=== PATIENT | male | born 1940 | race Two or more races ===

== ENCOUNTER 2024-11-11 08:03 | Outpatient (REF) | payer SELFPAY ==
[2024-11-11 11:39] LABS: Hematocrit 40.9 % (42.0-52.0); Hemoglobin 13.5 g/dl (14.0-18.0); Mean Corpuscular Hemoglobin 30.3 pg (27.0-33.0); Mean Corpuscular Volume 91.9 fL (80.0-98.0); Mean Platelet Volume 11.2 fL (9.4-12.4); Platelet Count 164 X10*3/uL (160-400); Red Blood Count 4.45 X10*6/uL (4.60-5.80); White Blood Count 6.8 X10*3/uL (4.8-10.8)
[2024-11-11 11:55] LABS: Estimated Average Glucose 128 mg/dL; Hemoglobin A1C 148.4858 umol/L; Hemoglobin A1c % 6.1 % (<6.0); Total Hemoglobin (HGBA1C) 3399.9014 umol/L
[2024-11-11 12:13] LABS: Creatinine Urine 215.97 mg/dL; Microalbum/Creatinine Ratio Ur 9.2 ug/mg cr (<30)
[2024-11-11 12:23] LABS: Folate 15.6 ng/mL (> or = 4.0); Vitamin B12 669 pg/mL (200-900)
[2024-11-11 12:51] LABS: Hepatitis A Antibody IgG REACTIVE (Nonreactive); ~Hepatitis A Antibody IgG 11.87 S/CO (0.00-0.99)
[2024-11-11 12:59] LABS: HBS Num1 0.26 mIU/mL (0-7.99); HBc Num1 0.14 S/CO (0.00-0.79); HBsAGNum1 0.34 S/CO (0.00-0.99); HIV AB/AG Nonreactive (Nonreactive); HIV Num 1 0.11 S/CO (0.00-0.99); Hepatitis B Core Antibody Nonreactive (Nonreactive); Hepatitis B Surface Antigen Negative (Negative); ~HepC Num1 0.08 S/CO (0.00-0.79); ~Hepatitis B Surface Antibody NONREACTIVE (Nonreactive); ~Hepatitis C Antibody Nonreactive (Nonreactive)
[2024-11-11 13:10] LABS: Alanine Aminotransferase 21 U/L (0-40); Albumin Level 4.3 g/dL (3.5-5.0); Alkaline Phosphatase 33 U/L (39-117); Anion Gap 10 (12-20); Aspartate Amino Transferase 21 U/L (5-37); Bilirubin Direct 0.3 mg/dL (0.0-0.5); Bilirubin Total 0.9 mg/dL (0.0-1.0); Blood Urea Nitrogen 19 mg/dL (9-16); Calcium 9.2 mg/dL (8.4-10.2); Carbon Dioxide 27 mmol/L (22-29); Chloride 110 mmol/L (96-108); Cholesterol 150 mg/dL (<200); Estimated Glomerular Filt Rate > 60; Free T4 (Free Thyroxine) 1.24 ng/dL (0.71-1.85); Glucose Random 141 mg/dL (60-115); HDL Cholesterol 45 mg/dL (>40); LDL Cholesterol Calculated 90 mg/dL (<100); Potassium 3.9 mmol/L (3.3-5.1); Sodium 143 mmol/L (135-145); Triglycerides 76 mg/dL (<150); Vitamin D 25-OH Total 38.7 ng/mL (>30)
[2024-11-11 13:42] LABS: CT PCR NOT DETECTED (Not Detect.); NG PCR NOT DETECTED (Not Detect.)
[2024-11-14 07:59] LABS: RPR Rapid Plasma Reagin NON-REACTIVE (NON-REACTIVE)
== END 2024-11-11 08:04 | disposition home or self-care (01) ==
LOC: HO.HHCL 08:03
PROVIDERS: Visit Provider Family Medicine
DX: Z00.00 Encounter for general adult medical examination without abnormal findings (principal); E11.9 Type 2 diabetes mellitus without complications; I10 Essential (primary) hypertension; E78.49 Other hyperlipidemia; K21.9 Gastro-esophageal reflux disease without esophagitis; J30.9 Allergic rhinitis, unspecified; N40.0 Benign prostatic hyperplasia without lower urinary tract symptoms; Z87.891 Personal history of nicotine dependence; Z71.1 Person with feared health complaint in whom no diagnosis is made
CPT/HCPCS: 80048; 80061; 80076; 82043; 82306; 82570; 82607; 82746; 83036; 84439; 84443; 85027; 86592; 86704; 86706; 86708; 86803; 87340; 87389; 87491; 87591

== ENCOUNTER 2024-12-02 09:57 | Outpatient (REF) | payer OTHER, SELFPAY ==
--- NOTE | ~2024-12-02 | US_ITS ---
CLINICAL HISTORY: H O SMOKING US Abdomen (AAA) Comparison: None Findings: Aorta proximal 2.4 x 2.4 cm. Aorta mid 1.7 x 1.7 cm. Aorta distal 1.8 x 1.8 cm. Right common iliac artery 1.4 x 1.2 cm. Left common iliac artery 1.1 x 1.2 cm. IMPRESSION: 1. No abdominal aortic aneurysm. 2. 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 This document has been electronically signed by: Addy Gonzalez MD on 12/02/2024 12:11:50
--- OUTSIDE RECORDS SUMMARY | 2024-12-02 13:03 | XMS_ITS | Encounter Summary ---
Author Organization [employer] Address [address] [place] [address] Care Team Providers Care Estimator Project Manager Name Role Phone Payton Streeter DO Primary Care Provider [phone] Encounter Details Date Type Department Care Team (Latest Contact Info) Description 11/10/2024 Travel Social History Tobacco Use Types Packs/Day Years Used Date Smoking Tobacco: Never Smokeless Tobacco: Never Alcohol Use Standard Drinks/Week Comments Never 0 (1 standard drink = 0.6 oz pur e alcohol) Depression Answer Date Recorded Patient Health Questionnaire-9 Score 3 11/10/2024 Patient Health Questionnaire-9 Score 3 11/10/2024 Last PHQ-9: Questionnaire Data Not on file 0 11/10/2024 Housing Stability Answer Date Recorded What is your housing situation today? I have alexygregor carreno 11/10/[address] you li ve. Do you have problems with any of the following? None of the above 11/10/2024 Food Insecurity Answer Date Recorded Within the past 12 months, y ou worried that your food would run out before you got money to buy more: Never True 11/10/2024 Within the past 12 months,th e food you bought just didn't last and you didn't have enough money to get more: Never True 06/2025 Transportation Answer Date Recorded In the past 12 months, has l ack of transportation kept you from medical appts, meetings, work or from getting things needed for daily living? No 11/10/2024 Utilities Answer Date Recorded In the past 12 months, has t he electric, gas, oil or water company threatened to shut off services in your home? No 11/10/2024 Depression Answer Date Recorded Patient Health Questionnaire-2 Score 1 11/10/2024 Internet Access Answer Date Recorded Internet Access Q1 Yes 11/10/2024 Internet Access Q2 Not on file 11/10/2024 Sex and Gender Information Value Date Recorded Sex Assigned at Male 05/17/2024 1:47 PM EDT Legal Sex Male 1:46 PM EDT Gender Identity Male 05/17/2024 1:47 PM EDT Sexual Orientation Don't know 05/17/2024 1: 47 PM EDT documented as of this encounter Plan of Treatment Not on file documented as of this encounter Visit Diagnoses Not on filedocumented in this encounter Additional Health Concerns Assessment Noted Time PHQ-9 Depression Total Score: 3 11/10/19 10:22 AM EST documented as of this encounter Care Teams Estimator Project Manager Relationship Specialty Start Date End Date Payton Streeter DO [address] [place] [id number] PCP - General Family Medicine 11/10/24 documented as of this encounter
--- OUTSIDE RECORDS SUMMARY | 2024-12-02 13:03 | XMS_ITS | Clinical Summary ---
Author Organization [facility] Address [address] [place] [address] Care Team Providers Care Planning Aide Name Role Phone Tamika Hurley MD Primary Care Prov ider Allergies Active Allergy Reactions Criticality Noted Date Comments Iodinated Contrast Media 02/02/2018 Anxious, difficulty speaking Medications Medication Sig Dispensed Refills Start Date End Date Status amLODIPine (NORVASC) 5 mg tablet Take 1 tablet (5 mg total) by mouth 1 (one) time each day. 07/30/2024 Active aspirin (ASPIR-81 ORAL) Take 1 Tab by mouth daily (with breakfast). Active atorvastatin (LIPITOR) 10 mg tablet Take 1 tablet (10 mg total) by mouth at bedtime. 07/30/2024 Active blood-glucose meter (ONETOUCH VERIO METER [facility]) Blood Glucose Monitoring Suppl (ONETOUCH VERIO) W/DEVICE Kit- 1 Device by Does not apply route See Admin Instructions. Check blood sugar once a day. Dx E11.9 12/10/2018 Active cetirizine (ZyrTEC) 10 mg tablet Take 1 tablet (10 mg total) by mouth 1 (one) time each day. 07/30/2024 Active diclofenac (VOLTAREN) 1 % topical gel Apply 4 g topically 5 times daily. 06/23/2023 Active ceramides cream (CeraVe) cream moisturizing cream Apply twice a day to hands 11/23/2019 Active fenofibrate (LOFIBRA) 160 mg tablet Take 1 tablet (160 mg total) by mouth 1 (one) time each day. 07/30/2024 Active fluticasone propionate (FLONASE) 50 mcg/actuation nasal spray 1 [place] by Each Nare route daily. 07/21/2020 Active glipiZIDE (GLUCOTROL XL) 2.5 mg 24 hr tablet Take 1 tablet (2.5 mg total) by mouth 1 (one) time each day. 07/30/2024 Active blood sugar diagnostic (TeamieTouch Verio test strips) test strip Use to test blood sugar once a day. 04/13/2024 05/08/2025 Active ibuprofen (ADVIL,MOTRIN) 600 mg tablet Take 1 Tab by mouth 3 times daily as needed for Pain. 07/17/2020 Active lisinopriL (PRINIVIL,ZESTRIL) 2.5 mg tablet Take 1 tablet (2.5 mg total) by mouth 1 (one) time each day. 07/30/2024 Active metFORMIN XR (GLUCOPHAGE-XR) 500 mg 24 hr tablet Take 1 tablet (500 mg total) by mouth 1 (one) time each day with breakfast. 07/30/2024 Active mirabegron (Myrbetriq) 25 mg 24 hr tablet 10/15/2022 Active omeprazole (PriLOSEC) [address] capsule Take 1 capsule (20 mg total) by mouth 1 (one) time each day. 07/30/2024 Active [place]'s wort 300 mg capsule Take 1 capsule by mouth 1 (one) time each day. Active tamsulosin (FLOMAX) 0.4 mg 24 hr capsule TAKE 1 CAPSULE BY MOUTH DAILY. TAKE 30 MINS AFTER SAME MEAL EVERY DAY. 07/30/2024 Active terbinafine (LamISIL) 1 % cream Apply 1 Units topically at bedtime. 08/18/2018 Active lancets 33 gauge misc 1 Each by Does not apply route daily. Dx: E11.9 06/23/2023 Active Active Problems Problem Noted Date Diagnosed Date Hydrocele, bilateral 09/05/2019 Overview (10/07/2024): [facility] US 09/01/19 ZULEYMA (obstructive sleep apnea) 09/07/2018 Overview (10/07/2024): [facility] [place] Home Polysomnogram: Date 09/02/2018; AHI 43, Unclassified apneas 44; Obstructive apneas 285; Central apneas 12; Mixed apneas 1; hypopneas 26; oxygen saturation data not recorded. RBM Polysomnogram treatment study. Date 10/12/2018. SE 55 % SM 66 %; spent 28 % of the study in REM. On CPAP @ 16; RDI 5.1 (AHI 4.6), Central apneas 14; Obstructive apneas 0; Mixed apneas 0; hypopneas 3; RERAs 2; and, average oxygen saturation was 97%. For the entire study, PLMs ~6. - Obstructive Sleep Apnea - severe; mostly obstructive apneas; by 2018 home polysomnogram. - as of 10/19/2020 not using, too much air Choledocholithiasis with chronic cholecystitis 0 03/12/2018 Overview (10/07/2024): s/p lap cholecystectomy 10/02/2017 BPH (benign prostatic hyperplasia) 02/02/2018 Colon polyp 02/02/2018 Diabetes mellitus type 2, uncomplicated 02/03/20 18 Elevated PSA 02/02/2018 Overview (10/07/2024): PSA 4 in 2018 per uro note 12/2019; %free PSA 23 favoring benign etiol. He recommended d/cing PSA screening. Hyperlipidemia 02/02/2018 Hypertension 02/02/2018 Immunizations Name Administration Dates Next Due Influenza trivalent, 0.5mL ( Fluad) 65yo and older 10/17/2022,08/21/2021,07/17/2020,09/16 Influenza, Unspecified 11/10/2017 Pfizer Covid-19 Bivalent, Or iginal + Ba.1 (Non-US Trademark COMIRNATAcompli Bivalent) 10/08/2022 [employer] SARS-CoV-2 COVID-19, mRNA, LNP-S, preservative free 01/04/2021,12/14/2020 Pneumococcal conjugate 13 va lent (Prevnar 13, PCV13) 2mo and older 02/02/2018 Pneumococcal polysaccharide 23 valent (Pneumovax 23) 2yo and older 03/09/2019 Tdap Tetanus diptheria acell ular pertussis (Boostrix; Adacel) 7yo and older 02/02/2018 Surgical History Surgery Date Site/Laterality Comments CHOLECYSTECTOMY 10/02/2017 PROCEDURE: HISTORICAL CHOLECYSTECTOMY; COMMENT: lap jessica OTHER SURGICAL HISTORY 11/04/2019 Left PROCEDURE: [place] EXC HYDROCELE SPRMATIC CORD UNI SPX; COMMENT: ANDERSON De La Fuente Medical History Medical History Date Comments Hypertension 02/02/2018 DX:Hypertension Diabetes mellitus type 2, un complicated (CMS/HCC) 02/02/2018 DX:Diabetes mellitus type 2, uncomplicated (HCC) Hyperlipidemia 02/02/2018 DX:Hyperlipidemi a BPH (benign prostatic hyperplasia) 02/02/2018 DX:BPH (benign prostatic hyperplasia) Elevated PSA 02/02/2018 DX:Elevated PSA Colon polyp 02/02/2018 DX:Colon polyp Choledocholithiasis with chr onic cholecystitis 03/12/2018 DX:Choledocholithiasis with chronic cholecystitis; COMMENT: s/p lap cholecystectomy 10/02/2017 Family History Medical History Relation Name Comments Heart attack Brother Heart attack Father hyperlipidemia Coronary artery disease Mother hype rlipidemia, ? reaction to anesthesia Diabetes Sister 1 hypertension Hypertension Sister 2 Relation Name Status Comments Brother Father Mother Sister 1 Sister 2 Social History Tobacco Use Types Packs/Day Years Used Date Smoking Tobacco: Former Cigarettes Smokeless Tobacco: Never Alcohol Use Standard Drinks/Week Comments No 0 (1 standard drink = 0.6 oz pur e alcohol) Sex and Gender Information Value Date Recorded Sex Assigned at Not on file Gender Identity Not on file Sexual Orientation Not on file Obstetrics History Last Filed Vital Signs Vital Sign Reading Time Taken Comments Blood Pressure 114/59 04/13/2024 10:56 AM EDT Pulse 67 04/13/2024 10:56 AM EDT Temperature - - Respiratory Rate - - Oxygen Saturation - - Inhaled Oxygen Concentration - - Weight 63.1 kg (139 lb 3.2 oz) 04/13/2024 10:56 AM EDT Height 162.6 cm (5' 4 ) 04/13/2024 10:56 AM EDT Body Mass Index 23.89 04/13/2024 10:56 AM EDT Plan of Treatment Upcoming Encounters Date Type Department Care Team (Late st Contact Info) Description 12/28/2024 11:30 AM EST Office Visit Adult Medicine [address] [address] Tamika Hurley MD [address] [place] [address] [phone] Health Maintenance Due Date Last Done Comments Diabetes: Annual Retina Eye Exam 1950 Zoster Vaccines (1 of 2) 1991 RSV Immunization Patients 60+ Years Old (1 - 1-dose 75+ series) 2016 Depression Screening 10/12/2022 Falls Risk Assessment 10/12/2022 Social Influencers of Health Screening 10/12/2022 COVID-19 Vaccine ( season) 2024 09/12/2021, 01/04/2021, 12/14/2020 Influenza Vaccine (#1) 2024 , 08/21/2021, 07/17/2020, Additional history exists Diabetes: Blood Sugar Control Test (HGBA1C) 09/09/2024 03/09/2024, 03/09/2024 Diabetes: Annual Urine Albumin-Creatinine Ratio (uACR) 03/09/2025 03/09/2024 Diabetes: Annual GFR (Glomerular Filtration Rate) 03/09/2025 03/09/2024, 03/09/2024 Hypertension/CHF/CAD Annual BMP Blood Test 03/09/2025 03/09/2024, 03/09/2024 Diabetes: Annual Foot Exam 04/13/2025 04/13/2024 DTaP,Tdap,and Td Vaccines (2 - Td or Tdap) 02/03/2028 02/02/2018 Cholesterol Screening (Lipid Panel) 03/09/2029 03/09/2024, 03/09/2024 Pneumococcal Vaccine: 65+ Years Completed 03/09/2019, 02/02/2018 HIB Vaccines Aged Out No longer eligi ble based on patient's age to complete this topic HPV Vaccines Aged Out No longer eligi ble based on patient's age to complete this topic Hepatitis A Vaccines Aged Out No long er eligible based on patient's age to complete this topic Hepatitis B Vaccines Aged Out No long er eligible based on patient's age to complete this topic IPV Vaccines Aged Out No longer eligi ble based on patient's age to complete this topic MMR Vaccines Aged Out No longer eligi ble based on patient's age to complete this topic Meningococcal ACWY Vaccine Aged Out N o longer eligible based on patient's age to complete this topic RSV Immunization Patients Under 20 months Aged Out No longer eligible based on patient's age to complete this topic Varicella Vaccines Aged Out No longer eligible based on patient's age to complete this topic Procedures Procedure Name Priority Date/Time Associated Diagnosis Comments DIABETES FOOT EXAM Routine 04/13/2024 URINE ALBUMIN CREATININE RATIO Routine 03/09/2024 ANNUAL BMP BLOOD TEST Routine 03/09/2024 HEMOGLOBIN A1C Routine 03/09/2024 LIPID PANEL Routine 03/09/2024 from Last 3 Months or Most Recently Relevant to Health Maintenance Results * Diabetes Foot Exam (04/13/2024) Pathologist [facility] Diabetes: Annual Foot Exam abstracted Historical Provider [facility] * Urine Albumin Creatinine Ratio (03/09/2024) Pathologist [facility] Urine Albumin Creatinine Ratio abstracted Historical Provider [facility] * Annual BMP Blood Test (03/09/2024) Pathologist [facility] Annual BMP Blood Test abstracted Historical Provider [facility] * Hemoglobin A1c (03/09/2024) [facility] Hemoglobin A1C 5.8 6.5 % Blood Venous blood specimen / Unknown Historical Provider LAB BLOOD ORDERAB LES * (ABNORMAL) Lipid panel (03/09/2024) [facility] LDL/HDL Ratio 4 0 - 4 Triglycerides 174(A) 0 - 150 mg/dL Cholesterol 148 0 - 200 mg/dL HDL 39(A) 40 mg/dL LDL Cholesterol 75 0 - 100 mg/dL Blood Venous blood specimen / Unknown Historical Provider LAB BLOOD ORDERAB LES from Last 3 Months or Most Recently Relevant to Health Maintenance Care Teams Planning Aide Relationship Specialty Start Date End Date Tamika Hurley MD PCP - General Internal Medicine 07/22/22
--- OUTSIDE RECORDS SUMMARY | 2024-12-02 13:03 | XMS_ITS | Clinical Summary ---
Author Organization [employer] Address [address] [place] [address] Care Team Providers Care Molding Manager Name Role Phone Payton Streeter Primary Care Provider Allergies No known active allergies Medications tamsulosin (Flomax) 0.4 MG 24 hr capsule Take 0.4 mg by mouth Once per day. 11/05/2024 Active omeprazole (PriLOSEC) [address] capsule Take 20 mg by mouth before breakfast. 11/05/2024 Active Myrbetriq 25 MG 24 hr tablet Take 25 mg by mouth Once per day. 11/05/2024 Active metFORMIN XR (Glucophage-XR) 500 MG 24 hr tablet Take 500 mg by mouth with evening meal. 10/18/2024 Active lisinopril 2.5 MG tablet Take 2.5 mg by mouth Once per day. 11/05/2024 Active amLODIPine (Norvasc) 5 MG tablet Take 5 mg by mouth Once per day. 11/05/2024 Active atorvastatin (Lipitor) 10 MG tablet Take 10 mg by mouth Once per day. 11/05/2024 Active glipiZIDE XL (Glucotrol XL) 2.5 MG 24 hr tablet Take 2.5 mg by mouth Once per day. 11/05/2024 Active fenofibrate (Triglide) 160 MG tablet Take 160 mg by mouth Once per day. 11/05/2024 Active finasteride (Proscar) 5 MG tablet Take 5 mg by mouth Once per day. 11/05/2024 Active cetirizine (ZyrTEC) 10 MG tablet Take 10 mg by mouth Once per day. 11/05/2024 Active Active Problems Problem Noted Date Diagnosed Date BPH (benign prostatic hyperplasia) 11/10/2024 Chronic allergic rhinitis 11/10/2024 History of colonic polyps 11/10/2024 BMI 27.0-27.9,adult 11/10/2024 History of tobacco use 11/10/2024 History of CVA (cerebrovascular accident) 2024 Essential hypertension 11/09/2024 Hyperlipidemia 11/09/2024 Type 2 diabetes mellitus 11/09/2024 Chronic gastroesophageal reflux disease 11/09/19 Encounters Date Type Department Care Team Description 12/02/2024 Orders Only [facility] [address] [place] [phone] Payton Streeter DO 11/10/2024 10:15 AM EST Office Visit [facility] [address] [place] [address] Payton Streeter DO Type 2 diabetes mellitus without complication, without long-term current use of insulin ([facility]) (Primary Dx); Essential hypertension; Other hyperlipidemia; Chronic gastroesophageal reflux disease; Chronic allergic rhinitis; Benign prostatic hyperplasia, unspecified whether lower urinary tract symptoms present; History of tobacco use; Concern about memory; History of colonic polyps; Healthcare maintenance; BMI 27.0-27.9,adult; Encounter for immunization 11/10/2024 Travel 11/08/2024 Telephone [facility] [address] [place] [phone] Anni Welch MA Chart Prep from Last 3 Months Immunizations Name Administration Dates Next Due Pfizer Covid-19 Vaccine 12+ 11/10/2024 Family History Medical History Relation Name Comments Dementia Brother Heart disease Father Heart disease Mother Relation Name Status Comments Brother Father Mother Social History Tobacco Use Types Packs/Day Years Used Date Smoking Tobacco: Never Smokeless Tobacco: Never Tobacco Cessation:Counseling Given: Not Answered Alcohol Use Standard Drinks/Week Comments Never 0 (1 standard drink = 0.6 oz pur e alcohol) Depression Answer Date Recorded Patient Health Questionnaire-9 Score 3 11/10/2024 Patient Health Questionnaire-9 Score 3 11/10/2024 Last PHQ-9: Questionnaire Data Not on file 0 11/10/2024 Housing Stability Answer Date Recorded What is your housing situation today? I have alexy carreno 11/10/[address] you [...] the past 12 months, has t he [employer], gas, oil or water company threatened to [...] Don't know 05/17/2024 1: 47 PM EDT Last Filed Vital Signs Vital Sign Reading Time Taken Comments Blood Pressure 132/70 11/10/2024 10:18 AM EST Pulse 78 11/10/2024 10:18 AM EST Temperature 36.1 ??C (97 ??F) 11/10/2024 10:18 AM EST Respiratory Rate 19 11/10/2024 10:18 AM EST Oxygen Saturation - - Inhaled Oxygen Concentration - - Weight 64.9 kg (143 lb) 11/10/2024 10:18 AM EST Height 152.4 cm (5') 11/10/2024 10:18 AM EST Body Mass Index 27.93 11/10/2024 10:18 AM EST Plan of Treatment Health Maintenance Due Date Last Done Comments Diabetes: Foot Exam 1950 Eye Exam 1950 DTaP/Tdap/Td Vaccines (1 - Tdap) 1960 Pneumococcal Vaccine: 50+ Years (1 of 2 - PCV) 1960 Zoster Vaccines (1 of 2) 1991 RSV Patients and Patients Aged 60 years or older (1 - 1-dose 75+ series) 2016 Influenza Vaccine (#1) 2024 Diabetes: Hemoglobin A1C 05/11/2025 025, 11/10/2024 Alcohol/Substance Use Screening 11/10/2025 11/10/2024 Depression Screening 11/10/2025 11/10/2024, 11/10/2024 SDOH Screening 11/10/2025 11/10/2024 Tobacco Screening 11/10/2025 11/10/2024 Diabetes: Urine Protein Screening 11/11/2025 11/11/2024 Lipid Panel 11/11/2025 11/11/2024 COVID-19 Vaccine Completed 11/10/2024 HIB Vaccines Aged Out No longer eligi [...] patient's age to complete this topic Meningococcal Vaccine Aged Out No laurita angy eligible based on patient's age to complete this topic RSV under 20 months Aged Out No longe r eligible based on patient's age to complete this topic Rotavirus Vaccines Aged Out No longer eligible based on patient's age to complete this topic Procedures Procedure Name Priority Date/Time Associated Diagnosis Comments US AORTA Routine 12/02/2024 12:11 PM EST VITAMIN B12/FOLATE, SERUM PANEL Routine 11/11/2024 8:10 AM EST Type 2 diabetes mellitus without complication, without long-term current use of insulin (CMS/HCC) Essential hypertension Other hyperlipidemia Chronic gastroesophageal reflux disease Chronic allergic rhinitis Benign prostatic hyperplasia, unspecified whether lower urinary tract symptoms present History of tobacco use Concern about memory Healthcare maintenance BMI 27.0-27.9,adult HEPATITIS B CORE AB TOTAL Routine 11/11/2024 8:10 AM EST Type 2 diabetes mellitus without complication, without long-term current use of insulin (CMS/HCC) Essential hypertension Other hyperlipidemia Chronic gastroesophageal reflux disease Chronic allergic rhinitis Benign prostatic hyperplasia, unspecified whether lower urinary tract symptoms present History of tobacco use Concern about memory Healthcare maintenance BMI 27.0-27.9,adult HEPATITIS A ANTIBODY, TOTAL Routine 11/11/2024 8:10 AM EST Type 2 diabetes mellitus without complication, without long-term current use of insulin (CMS/HCC) Essential hypertension Other hyperlipidemia Chronic gastroesophageal reflux disease Chronic allergic rhinitis Benign prostatic hyperplasia, unspecified whether lower urinary tract symptoms present History of tobacco use Concern about memory Healthcare maintenance BMI 27.0-27.9,adult HEPATITIS B SURFACE ANTIBODY, QUALITATIVE Routine 11/11/2024 8:10 AM EST Type 2 diabetes mellitus without complication, without long-term current use of insulin (CMS/HCC) Essential hypertension Other hyperlipidemia Chronic gastroesophageal reflux disease Chronic allergic rhinitis Benign prostatic hyperplasia, unspecified whether lower urinary tract symptoms present History of tobacco use Concern about memory Healthcare maintenance BMI 27.0-27.9,adult RPR (MONITOR) W/REFL TITER Routine 11/11/2024 8:10 AM EST Type 2 diabetes mellitus without complication, without long-term current use of insulin (CMS/HCC) Essential hypertension Other hyperlipidemia Chronic gastroesophageal reflux disease Chronic allergic rhinitis Benign prostatic hyperplasia, unspecified whether lower urinary tract symptoms present History of tobacco use Concern about memory Healthcare maintenance BMI 27.0-27.9,adult HEPATITIS C AB W/REFL TO HCV RNA, QN, PCR Routine 11/11/2024 8:10 AM EST Type 2 diabetes mellitus without complication, without long-term current use of insulin (CMS/HCC) Essential hypertension Other hyperlipidemia Chronic gastroesophageal reflux disease Chronic allergic rhinitis Benign prostatic hyperplasia, unspecified whether lower urinary tract symptoms present History of tobacco use Concern about memory Healthcare maintenance BMI 27.0-27.9,adult HIV 1/2 ANTIGEN/ANTIBODY, FOURTH GENERATION W/RFL Routine 11/11/2024 8:10 AM EST Type 2 diabetes mellitus without complication, without long-term current use of insulin (CMS/HCC) Essential hypertension Other hyperlipidemia Chronic gastroesophageal reflux disease Chronic allergic rhinitis Benign prostatic hyperplasia, unspecified whether lower urinary tract symptoms present History of tobacco use Concern about memory Healthcare maintenance BMI 27.0-27.9,adult HEPATITIS B SURFACE ANTIGEN, EIA Routine 11/11/2024 8:10 AM EST Type 2 diabetes mellitus without complication, without long-term current use of insulin (CMS/HCC) Essential hypertension Other hyperlipidemia Chronic gastroesophageal reflux disease Chronic allergic rhinitis Benign prostatic hyperplasia, unspecified whether lower urinary tract symptoms present History of tobacco use Concern about memory Healthcare maintenance BMI 27.0-27.9,adult ALBUMIN, RANDOM URINE W/CREATININE Routine 11/11/2024 8:10 AM EST Type 2 diabetes mellitus without complication, without long-term current use of insulin (CMS/HCC) Essential hypertension Other hyperlipidemia Chronic gastroesophageal reflux disease Chronic allergic rhinitis Benign prostatic hyperplasia, unspecified whether lower urinary tract symptoms present History of tobacco use Concern about memory Healthcare maintenance BMI 27.0-27.9,adult CBC Routine 11/11/2024 8:10 AM EST Type 2 diabetes mellitus without complication, without long-term current use of insulin (CMS/HCC) Essential hypertension Other hyperlipidemia Chronic gastroesophageal reflux disease Chronic allergic rhinitis Benign prostatic hyperplasia, unspecified whether lower urinary tract symptoms present History of tobacco use Concern about memory Healthcare maintenance BMI 27.0-27.9,adult BASIC METABOLIC PANEL Routine 11/11/2024 8:10 AM EST Type 2 diabetes mellitus without complication, without long-term current use of insulin (CMS/HCC) Essential hypertension Other hyperlipidemia Chronic gastroesophageal reflux disease Chronic allergic rhinitis Benign prostatic hyperplasia, unspecified whether lower urinary tract symptoms present History of tobacco use Concern about memory Healthcare maintenance BMI 27.0-27.9,adult HEMOGLOBIN A1C Routine 11/11/2024 8:10 AM EST Type 2 diabetes mellitus without complication, without long-term current use of insulin (CMS/HCC) Essential hypertension Other hyperlipidemia Chronic gastroesophageal reflux disease Chronic allergic rhinitis Benign prostatic hyperplasia, unspecified whether lower urinary tract symptoms present History of tobacco use Concern about memory Healthcare maintenance BMI 27.0-27.9,adult HEPATIC FUNCTION PANEL Routine 11/11/2024 8:10 AM EST Type 2 diabetes mellitus without complication, without long-term current use of insulin (CMS/HCC) Essential hypertension Other hyperlipidemia Chronic gastroesophageal reflux disease Chronic allergic rhinitis Benign prostatic hyperplasia, unspecified whether lower urinary tract symptoms present History of tobacco use Concern about memory Healthcare maintenance BMI 27.0-27.9,adult TSH Routine 11/11/2024 8:10 AM EST Type 2 diabetes mellitus without complication, without long-term current use of insulin ([facility]) Essential hypertension Other hyperlipidemia Chronic gastroesophageal reflux disease Chronic allergic rhinitis Benign prostatic hyperplasia, unspecified whether lower urinary tract symptoms present History of tobacco use Concern about memory Healthcare maintenance BMI 27.0-27.9,adult LIPID PANEL, STANDARD Routine 11/11/2024 8:10 AM EST Type 2 diabetes mellitus without complication, without long-term current use of insulin ([facility]/HCC) Essential hypertension Other hyperlipidemia Chronic gastroesophageal reflux disease Chronic allergic rhinitis Benign prostatic hyperplasia, unspecified whether lower urinary tract symptoms present History of tobacco use Concern about memory Healthcare maintenance BMI 27.0-27.9,adult VITAMIN D,25-OH,TOTAL,IA Routine 11/11/2024 8:10 AM EST Type 2 diabetes mellitus without complication, without long-term current use of insulin ([facility]) Essential hypertension Other hyperlipidemia Chronic gastroesophageal reflux disease Chronic allergic rhinitis Benign prostatic hyperplasia, unspecified whether lower urinary tract symptoms present History of tobacco use Concern about memory Healthcare maintenance BMI 27.0-27.9,adult T4, FREE Routine 11/11/2024 8:10 AM EST Type 2 diabetes mellitus without complication, without long-term current use of insulin ([facility]) Essential hypertension Other hyperlipidemia Chronic gastroesophageal reflux disease Chronic allergic rhinitis Benign prostatic hyperplasia, unspecified whether lower urinary tract symptoms present History of tobacco use Concern about memory Healthcare maintenance BMI 27.0-27.9,adult CHLAMYDIA/N. GONORRHOEAE RNA, TMA, UROGENITAL Routine 11/11/2024 8:10 AM EST Type 2 diabetes mellitus without complication, without long-term current use of insulin ([facility]/HCC) Essential hypertension Other hyperlipidemia Chronic gastroesophageal reflux disease Chronic allergic rhinitis Benign prostatic hyperplasia, unspecified whether lower urinary tract symptoms present History of tobacco use Concern about memory Healthcare maintenance BMI 27.0-27.9,adult POCT GLYCATED HEMOGLOBIN, TOTAL Routine 11/10/2024 10:27 AM EST Healthcare maintenance POCT GLUCOSE Routine 11/10/2024 10:26 AM EST Healthcare maintenance from Last 3 Months Results * US aorta (12/02/2024 12:11 PM EST) Anatomical Region Laterality Modality Abdomen Ultrasound 12/02/2024 12:1 1 PM EST Narrative 12/02/2024 12:13 PM EST ? [facility] ?[address] ?[place] [address] ? Ultrasound Report ? Signed ? Patient: Colon Morin,Ace ?MR#: ?? [id number] ? : 1940 ?Acct:[id number] ? Age/Sex: 83 / M ?ADM Date: 12/02/24 ? Loc: HO.US ? Attending Dr: Payton Streeter DO ? Ordering Physician: Payton Streeter DO ?? Date of Service: 12/02/24 ?? Procedure(s): US aorta ?? Accession Number(s): [id number] ? cc: Payton Streeter DO; Karthik Blankenship ? CLINICAL HISTORY: H O SMOKING ? US Abdomen (AAA) ? Comparison: None ? Findings: ?? Aorta proximal 2.4 x 2.4 cm. ?? Aorta mid 1.7 x 1.7 cm. ?? Aorta distal 1.8 x 1.8 cm. ? Right common iliac artery 1.4 x 1.2 cm. ?? Left common iliac artery 1.1 x 1.2 cm. ? IMPRESSION: ?? 1. No abdominal aortic aneurysm. ? 2. 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 ? This document has been electronically signed by: Addy Gonzalez MD on ?? 12/02/2024 12:11:50 ? Dictated By: ?Addy Gonzalez MD ? Signed By: ?<Electronically signed by Addy Gonzalez MD in OV> ? 12/02/243 ? DD/ 1211 ? TD/TT: 12/02/241210 ? Retail Client Manager: ? Procedure Note Justice, Image - 12/02/[address] [address] Ultrasound Report Signed Patient: Angel Easley#: [id number] : 2Acct:[id number] Age/Sex: 83 / MADM Date: 12/02/24 Loc: HO.US Attending Dr: Payton Streeter DO Ordering Physician: Payton tSreeter DO Date of Service: 12/02/24 Procedure(s): US aorta Accession Number(s): [id number] cc: Payton Streeter DO; Karthik Blankenship CLINICAL HISTORY: H O SMOKING US Abdomen (AAA) Comparison: None Findings: Aorta proximal 2.4 x 2.4 cm. Aorta mid 1.7 x 1.7 cm. Aorta distal 1.8 x 1.8 cm. Right common iliac artery 1.4 x 1.2 cm. Left common iliac artery 1.1 x 1.2 cm. IMPRESSION: 1. No abdominal aortic aneurysm. 2. 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 This document has been electronically signed by: Addy Gonzalez MD on 12/02/2024 12:11:50 Dictated By: Addy Gonzalez MD Signed By: <Electronically signed by Addy Gonzalez MD in OV> 12/02/24 1213 DD/ 1211 TD/TT: 12/02/24 1211 Retail Client Manager: us Payton Streeter DO IMG US PROCEDURES Final Resu lt * Vitamin D, 25-Hydroxy, Total, Immunoassay (11/11/2024 8:10 AM EST) Vitamin D 25-OH Total 38.7 >30 ng/mL [facility] Comment:Health Based Referen ce Values*< 20 ng/mL Teqzwltsj39-17 ng/mL Insufficient> 30 ng/mL Sufficient*Chrissie FONSECA. N Engl J Med. 2007;357:266-280Care must be taken in interpreting Vitamin D results fromdifferent laboratories and methodologies. Published datademonstrated that results from patients undergoinghemodialysis may show a negative bias when tested withvarious automated 25-OH vitamin D assays when compared toLC-MS/MS.When testing samples from patients whose predominant form ofVitamin D is Vitamin D2, such as patients receiving VitaminD2 supplementation, results that are subtherapeutic shouldbe confirmed with another method such as LC-MS/MS. Blood Venous blood specimen / Unknown 11/11/2024 8:10 AM EST 11/11/2024 11:28 AM EST us Payton Streeter DO LAB BLOOD ORDERABLES Final R esult Performing Organization Address City/[facility]/ZIP Co de Phone Number [facility] [address] [place] [address] [phone] * Vitamin B12 (Cobalamin) and Folate Panel, Serum (11/11/2024 8:10 AM EST) Vitamin B12 669 200 - 900 pg/mL [facility] Comment:NORMAL 200-900 PG/ML INDETERMINATE 160-199 PG/ML DEFICIENT < 160 PG/ML Folate 15.6 > or = 4.0 ng/mL [facility] Comment:Reference Values:> o r = 4.0 ng/mL< 4.0 ng/mL suggests folate deficiency Methotrexate, aminopterin and folinic acid(leucovorin) are chemotherapeutic agents whose molecularstructures are similar to folate; therefore, the Architectfolate assay cannot be used for patients using these drugs. Blood Venous blood specimen / Unknown 11/11/2024 8:10 AM EST 11/11/2024 11:28 AM EST us Payton Streeter DO LAB BLOOD ORDERABLES Final R esult Performing Organization Address [facility] Co de Phone Number [facility] [address] [place] [phone] * Albumin, Random Urine W/Creatinine (11/11/2024 8:10 AM EST) Creatinine, Urine 215.97 mg/dL [facility] Microalbumin Urine 20.0 mg/L H [facility] Microalbum Creatinine Ratio Ur 9.2 <30 ug/mg cr [facility] Comment:Albumin/Creatinine R atio Reference Ranges: Normal: < 30 ug/mg creatinine Microalbuminuria: 30 - 300 ug/mg creatinineClinical Albuminuria: > 300 ug/mg creatinine Urine (Urine, Random) 11/11/2024 8:10 AM EST 11/11/2024 11:23 AM EST us Payton Streeter DO LAB URINE ORDERABLES Final R esult Performing Organization Address City/[facility] Co de Phone Number [facility] [address] [place] [phone] * Hepatitis C Antibody with Reflex to HCV, RNA, Quantitative, Real-Time PCR (11/11/2024 8:10 AM EST) Hepatitis C Antibody Nonreactive Nonreactive [facility] Comment:Antibodies to HCV no t detected; does not exclude early acuteHCV infection. Blood Venous blood specimen / Unknown 11/11/2024 8:10 AM EST 11/11/2024 11:28 AM EST Payton Streeter DO LAB BLOOD ORDERABLES Final R [facility] Performing Organization Address [facility] Co de Phone Number [facility] [address] [place] [phone] * Hepatitis A Antibody, Total (11/11/2024 8:10 AM EST) Hepatitis A Antibody IgG REACTIVE Nonreactive [facility] Comment:The presence of IgG anti-HAV implies past HAV infection(recent or distant) or vaccination against HAV. Blood Venous blood specimen / Unknown 11/11/2024 8:10 AM EST 11/11/2024 11:28 AM EST Payton Streeter DO LAB BLOOD ORDERABLES Final R esult [facility] [address] [place] [phone] * Chlamydia/N. Gonorrhoeae RNA, TMA, Urogenitial (11/11/2024 8:10 AM EST) CT PCR NOT DETECTED Not Detect. [facility] Comment:A not detected test result does not exclude the possibilityof infection because test results can be affected byimproper specimen collection, concurrent antibiotic therapy,or the number of organisms in the specimen which may bebelow the sensitivity of the test. As with many diagnostictests, results from the Xpert CT/NG assay should beinterpreted in conjunction with other laboratory andclinical data available to the clinician.Xpert CT/NG performance has not been evaluated in patientsless than 14 years of age. The assay should not be used forthe evaluationof suspected sexual abuse or for other medico-legalindications. Additional testing is recommended in anycircumstance when false positive or false negative resultscould lead to adverse medical, social or psychologicalconsequences. NG PCR NOT DETECTED Not Detect. [facility] Comment:A not detected test result does not exclude the possibilityof infection because test results can be affected byimproper specimen collection, concurrent antibiotic therapy,or the number of organisms in the specimen which may bebelow the sensitivity of the test. As with many diagnostictests, results from the Xpert CT/NG assay should beinterpreted in conjunction with other laboratory andclinical data available to the clinician.Xpert CT/NG performance has not been evaluated in patientsless than 14 years of age. The assay should not be used forthe evaluationof suspected sexual abuse or for other medico-legalindications. Additional testing is recommended in anycircumstance when false positive or false negative resultscould lead to adverse medical, social or psychologicalconsequences. Urine Urethral structure / Unknown 11/11/2024 8:10 AM EST 11/11/2024 11:23 AM EST Narrative [facility] - 11/11/2024 1:42 PM EST Urine us Payton Streeter DO LAB MICROBIOLOGY - GENERAL O RDERABLES Final Result Performing Organization Address [facility]/ZIP Co de Phone Number [facility] [address] [place] [phone] * Hepatitis B surface antigen, EIA (11/11/2024 8:10 AM EST) Hepatitis B Surface Ag Negative Negative [facility] Blood Venous blood specimen / Unknown 11/11/2024 8:10 AM EST 11/11/2024 11:28 AM EST Payton Escalonaalyssarossy LAB BLOOD ORDERABLES Final R esult Performing Organization Address [facility] Co de Phone Number [facility] [address] [place] [phone] * Hepatitis B Core Antibody, Total (11/11/2024 8:10 AM EST) Hepatitis B Core Antibody Nonreactive Nonreactive [facility] Blood Venous blood specimen / Unknown 11/11/2024 8:10 AM EST 11/11/2024 11:28 AM EST Payton Streeter DO LAB BLOOD ORDERABLES Final R esult Performing Organization Address [facility] Co de Phone Number [facility] [address] [place] [phone] * RPR (Monitor) with Reflex to??Titer (11/11/2024 8:10 AM EST) RPR (Monitor) w/Refl Titer NON-REACTI VE NON-REACT OMAR [facility] Comment:THIS TEST WAS PERFOR MED AT:[employer] [place] [phone] PETERSON MD Rapid Plasma Reagin Ab Titer TNP [facility] Blood Venous blood specimen / Unknown 11/11/2024 8:10 AM EST 11/11/2024 11:28 AM EST Payton Escalonarekha DO LAB BLOOD ORDERABLES Final R esult Performing Organization Address City/[facility] Co de Phone Number [facility] [address] [place] [phone] * HIV-1/2 Antigen and Antibodies, Fourth Generation, with Reflexes (11/11/2024 8:10 AM EST) HIV AB/AG Nonreactive Nonreactive [facility] Comment:HIV-1 p24 Ag and/or HIV-1/HIV-2 Ab not detected.A test result that is nonreactive does not exclude thepossibility of exposure to or infection with HIV-1 and/orHIV-2. Nonreactive results in this assay for individualswith prior exposure to HIV-1 and/or HIV-2 may be due toantigen and antibody levels that are below the limit ofdetection of this assay.The [place] [employer] HIV Ag/Ab Combo assay result andsupplemental assay results should be interpreted inconjunction with the patient's clinical presentation,history and other laboratory results. If the results areinconsistent with clinical evidence, additional testing issuggested to confirm the result. Blood Venous blood specimen / Unknown 11/11/2024 8:10 AM EST 11/11/2024 11:28 AM EST Payton Syl DO LAB BLOOD ORDERABLES Final R esult [facility] [address] [place] [phone] * Hepatitis B Surface Antibody, Qualitative (11/11/2024 8:10 AM EST) Pathologist [facility] ~Hepatitis B Surface Antibody NONREACTIVE Nonreactive [facility] Comment:Nonreactive: < 8.00 mIU/mL Blood Venous blood specimen / Unknown 11/11/2024 8:10 AM EST 11/11/2024 11:28 AM EST us Payton Streeter DO LAB BLOOD ORDERABLES Final R esult [facility] [address] [place] [phone] * (ABNORMAL) CBC (11/11/2024 8:10 AM EST) White Blood Count 6.8 4.8 - 10.8 X10*3/uL [facility] Red Blood Count 4.45(L) 4.60 - 5.80 X10*6/uL [facility] Hemoglobin 13.5(L) 14.0 - 18.0 g/dl [facility] Hematocrit 40.9(L) 42.0 - 52.0 % [facility] Mean Corpuscular Volume 91.9 80.0 - 98.0 fL [facility] Mean Corpuscular Hemoglobin 30.3 27.0 - 33.0 pg [facility] Mean Corpuscular HGB Conc 33.0 31.0 - 36.0 g/dl [facility] Red Cell Distribution Width 14.0 11.0 - 16.0 % [facility] Platelet Count 164 160 - 400 X10*3/uL [facility] Mean Platelet Volume 11.2 9.4 - 12.4 fL [facility] NRBC Pct Auto 0.0 0.0 - 0.2 /100WBC [facility] NRBC Abs Auto 0.000 0.0 - 0.012 X10*3/uL [facility] Blood Venous blood specimen / Unknown 11/11/2024 8:10 AM EST 11/11/2024 11:28 AM EST Payton Streeter DO LAB BLOOD ORDERABLES Final R esult [facility] [address] [place] [phone] * TSH (11/11/2024 8:10 AM EST) Thyroid Stimulating Hormone 1.40 0.32 - 4.0 uIU/mL [facility] Comment:TSH 3rd Generation ( [facility]) Blood Venous blood specimen / Unknown 11/11/2024 8:10 AM EST 11/11/2024 11:28 AM EST Payton Syl DO LAB BLOOD ORDERABLES Final R esult Performing Organization Address City/[facility]/ZIP Co de Phone Number [facility] [address] [place] [phone] * T4, Free (11/11/2024 8:10 AM EST) Free T4 (Free Thyroxine) 1.24 0.71 - 1.85 ng/dL [facility] Blood Venous blood specimen / Unknown 11/11/2024 8:10 AM EST 11/11/2024 11:28 AM EST Payton Syl DO LAB BLOOD ORDERABLES Final R esult Performing Organization Address City/[facility] Co de Phone Number [facility] [address] [place] [phone] * (ABNORMAL) Hemoglobin A1c (11/11/2024 8:10 AM EST) Hemoglobin A1c 6.1(H) <6.0 % [facility] Comment:Hemoglobin A1C Refer ence Range Adults: 4.8 - 6.0 % Non diabetic: < 6.0 % Goal: < 7.0 %Additional Action Suggested: > 8.0 %Note: Hemoglobin A1c results are invalid for patients with abnormal amounts of HbF. Blood transfusions may impact the HbA1c concentration in the patient sample. Estimated Average Glucose 128 mg/dL [facility] Comment:eAG = Estimated ave rage glucose which is %A1C expressed asaverage glucose, using the formula of the [id number] Glucose study (ADAG), Diabetes Care, Vol.31,#8,2007 Blood Venous blood specimen / Unknown 11/11/2024 8:10 AM EST 11/11/2024 11:28 AM EST Payton Streeter DO LAB BLOOD ORDERABLES Final R esult Performing Organization Address [facility] Co de Phone Number [facility] [address] [place] [phone] * (ABNORMAL) Hepatic Function Panel (11/11/2024 8:10 AM EST) Bilirubin, Total 0.9 0.0 - 1.0 mg/dL [facility] Bilirubin, Direct 0.3 0.0 - 0.5 mg/dL [facility] Aspartate Amino Transferase 21 5 - 37 U/L [facility] Alanine Aminotransferase 21 0 - 40 U/L [facility] Total Protein 7.0 6.5 - 8.0 g/dL [facility] Albumin Level 4.3 3.5 - 5.0 g/dL [facility] Alkaline Phosphatase 33(L) 39 - 117 U/L [facility] Blood Venous blood specimen / Unknown 11/11/2024 8:10 AM EST 11/11/2024 11:28 AM EST Payton Streeter DO LAB BLOOD ORDERABLES Final R esult Performing Organization Address [facility] Co de Phone Number [facility] [address] [place] [phone] * Lipid Panel, Standard (11/11/2024 8:10 AM EST) Triglycerides 76 <150 mg/dL [facility] Comment:Desirable Triglyceri de: less than 150 mg/dLBorderline High Triglyceride 150-199 mg/dLHigh Triglyceride: 200-499 mg/dLVery High Triglyceride: greater than or equal to 5OO mg/dL Cholesterol 150 <200 mg/dL [facility] Comment:Desirable Cholestero l: less than 200 mg/dLBorderline High Cholesterol: 200-239 mg/dLHigh Cholesterol: greater than 239 mg/dL LDL Cholesterol Calculated 90 <100 mg/dL [facility] Comment:Desirable LDL: less than 100 mg/dLNear Optimal/Above Optimal LDL: 110- 129 mg/dLBorderline High LDL: 130-159 mg/dLHigh LDL: 160-189 mg/dLVery High LDL: greater than or equal to 190 mg/dL HDL Cholesterol 45 >40 mg/dL [facility] Comment:Desirable HDL: great er than 40 mg/dL Note: This HDL assay may give artificially low results in patients with liver disease. Blood Venous blood specimen / Unknown 11/11/2024 8:10 AM EST 11/11/2024 11:28 AM EST us Payton Streeter DO LAB BLOOD ORDERABLES Final R esult [facility] [address] [place] [address], [place] [phone] * (ABNORMAL) Basic Metabolic Panel (11/11/2024 8:10 AM EST) Sodium 143 135 - 145 mmol/L [facility] Potassium 3.9 3.3 - 5.1 mmol/L [facility] Chloride 110(H) 96 - 108 mmol/L [facility] Carbon Dioxide 27 22 - 29 mmol/L [facility] Anion Gap 10(L) 12 - 20 [facility] Urea Nitrogen (BUN) 19(H) 9 - 16 mg/dL [facility] Creatinine, Serum 1.07 0.5 - 1.4 mg/dL [facility] Estimated Glomerular Filt Rate >60 [facility] Comment:Chronic Kidney Disea se: Estimated GFR < 60 mL/min/[id number] Kidney Disease: Estimated GFR < 15 mL/min/1.73m2 Glucose 141(H) 60 - 115 mg/dL [facility] Calcium 9.2 8.4 - 10.2 mg/dL [facility] Blood Venous blood specimen / Unknown 11/11/2024 8:10 AM EST 11/11/2024 11:28 AM EST Payton Streeter DO LAB BLOOD ORDERABLES Final R esult [facility] [address] [place] [phone] * (ABNORMAL) POCT HGB A1C (11/10/2024 10:27 AM EST) Hemoglobin A1C 6.4(A) 4.0 - 6.0 % QC Media Lot # [id number] Lot# Expiration Date , Blood 11/10/2024 10:2 7 AM EST Payton Syl DO POINT OF CARE TEST ENTER/KYLER T ORDERABLES Final Result * (ABNORMAL) POCT Glucose (11/10/2024 10:26 AM EST) Glucose Blood, POC 317(A) 60 - 200 mg/dL [employer] Lot # [id number] Lot# Expiration Date ,172,025 Blood Capillary blood specimen / Unknown 11/10/2024 10:26 AM EST Payton Syl DO POINT OF CARE TEST ENTER/KYLER T ORDERABLES Final Result from Last 3 Months Insurance [address] [place] [id number] [facility] [place] [phone] Care Teams Molding Manager Relationship Specialty Start Date End Date Payton Streeter DO [address] [place] [phone] PCP - General Family Medicine 11/10/24
--- OUTSIDE RECORDS SUMMARY | 2024-12-02 13:03 | XMS_ITS | Encounter Summary ---
Author Organization [employer] Address [address] [facility] [address] [place] [address] Care Team Providers Care Radiation Therapy Technician Name Role Phone Unavailable Primary Care Provider Unavailabl e Reason for Visit * Reason Onset Date Comments Chart Prep 11/08/2024 Encounter Details Date Type Department Care Team (Late st Contact Info) Description 11/08/2024 Telephone [facility] [address] [place] [phone] Anni Welch MA Chart Prep Social History Tobacco Use Types Packs/Day Years Used Date Smoking Tobacco: Never Assessed Sex and Gender Information Value Date Recorded Sex Assigned at Male 05/17/2024 1:47 PM EDT Legal Sex Male 1:46 PM EDT Gender Identity Male 05/17/2024 1:47 PM EDT Sexual Orientation Don't know 05/17/2024 1: 47 PM EDT documented as of this encounter Miscellaneous Notes * Telephone Encounter - Anni Welch MA - 11/08/2024 10:45 AM EST Chart Prep Labs: not applicable Images: not applicable Vaccines due: Covid Due, Tdap Due, Flu Due, RSV in Pharmacy Due, and Shingles in pharmacy Due Referrals: Not Applicable Screenings: Lipid Panel Overdue care gaps: Sbirt, SDOH, PHQ-9, and Oral Health documented in this encounter Plan of Treatment Not on file documented as of this encounter Visit Diagnoses Not on filedocumented in this encounter
--- OUTSIDE RECORDS SUMMARY | 2024-12-02 13:03 | XMS_ITS | Encounter Summary ---
Author Organization [employer] [facility] Address [address] [place] [address] 7 [place] [address] Care Team Providers Care Maintenance And Utilities Supervisor Name Role Phone Payton Streeter DO Primary Care Provider [phone] Reason for Referral * Consultation (Routine) - Canceled Specialty Diagnoses / Procedures Referred By Kathryn newell Referred To Contact Ophthalmology Diagnoses Type 2 diabetes mellitus without complication, without long-term current use of insulin ([facility]) Essential hypertension Payton Streeter DO [address], [place] Phone: tel: fax: Referral ID Status Reason Start Date Expiration Date Visits Requested Visits Authorized [id number] Canceled Specialty Services Required 11/10/2024 11/10/2025 1 1 * Consultation (Routine) - Canceled Specialty Diagnoses / Procedures Referred By Kathryn newell Referred To Contact Gastroenterology Diagnoses History of colonic polyps Payton Streeter DO [address], [place] Phone: tel: fax: Referral ID Status Reason Start Date Expiration Date Visits Requested Visits Authorized [id number] Canceled Specialty Services Required 11/10/2024 11/10/2025 1 1 * Consultation (Routine) - Canceled Specialty Diagnoses / Procedures Referred By Kathryn newell Referred To Contact Neurology Diagnoses Concern about memory Paytno Streeter DO [address], [place] Phone: tel: fax: Referral ID Status Reason Start Date Expiration Date Visits Requested Visits Authorized [id number] Canceled Specialty Services Required 11/10/2024 11/10/2025 1 1 * Imaging (Routine) - Authorized Specialty Diagnoses / Procedures Referred By Contac t Referred To Contact Radiology Diagnoses Concern about memory Procedures CT Head w/o Contrast Payton Streeter DO [address] [place] [address] Phone: tel: fax: [address] Phone: tel: fax: Referral ID Status Reason Start Date Expiration Date V isits Requested Visits Authorized [id number] Authorized 11/10/2024 11/10/2025 1 1 * Imaging (Routine) - Closed Specialty Diagnoses / Procedures Referred By Contac t Referred To Contact Cardiology Diagnoses History of tobacco use Procedures Vascular US abdominal aorta anuerysm AAA screening Payton Streeter DO [address] [place] [address] Phone: tel: fax: [address] Phone: tel: fax: Referral ID Status Reason Start Date Expiration Date V isits Requested Visits Authorized [id number] Closed Perform Procedure 11/10/2024 11/10/2025 1 1 Encounter Details Date Type Department Care Team (Latest Contact Info) Description 11/10/2024 10:15 AM EST Office Visit [facility] [address] [place] [address] Payton Streeter DO [address], [place] Type 2 diabetes mellitus without complication, without long-term current use of insulin ([facility]) (Primary Dx); Essential hypertension; Other hyperlipidemia; Chronic gastroesophageal reflux disease; Chronic allergic rhinitis; Benign prostatic hyperplasia, unspecified whether lower urinary tract symptoms present; History of tobacco use; Concern about memory; History of colonic polyps; Healthcare maintenance; BMI 27.0-27.9,adult; Encounter for immunization Social History Tobacco Use Types Packs/Day Years [...] the past 12 months, has t he [employer], gas, oil or water [employer] threatened to shut off services in your [...] PM EDT documented as of this encounter Last Filed Vital Signs Vital Sign Reading [...] Mass Index 27.93 11/10/2024 10:18 AM EST documented in this encounter Plan of Treatment Scheduled Orders Name Type Priority Associated Diagnoses Orde r Schedule CT Head w/o Contrast Imaging Routine Concern about memory Expected: 11/10/2024, Expires: 11/10/2025 Scheduled Referrals Name Type Priority Associated Diagnoses Order Schedule Referral to Neurology Outpatient Referral Routine Concern about memory Expected: 11/10/2024 (Approximate), Expires: 11/10/2025 Referral to Gastroenterology Outpatient Referral Routine History of colonic polyps Expected: 11/10/2024 (Approximate), Expires: 11/10/2025 Referral to Ophthalmology Outpatient Referral Routine Type 2 diabetes mellitus without complication, without long-term current use of insulin ([facility]/HCC) Essential hypertension Expected: 11/10/2024 (Approximate), Expires: 11/10/2025 documented as of this encounter Procedures Procedure Name Priority Date/Time Associated Diagnosis Comments VITAMIN D,25-OH,TOTAL,IA Routine 11/11/2024 8:10 AM EST Type 2 diabetes mellitus without complication, without long-term current use of insulin (CMS/HCC) Essential hypertension Other hyperlipidemia Chronic gastroesophageal reflux disease Chronic allergic rhinitis Benign prostatic hyperplasia, unspecified whether lower urinary tract symptoms present History of tobacco use Concern about memory Healthcare maintenance BMI 27.0-27.9,adult VITAMIN B12/FOLATE, SERUM PANEL Routine 11/11/2024 8:10 [...] complication, without long-term current use of insulin ([facility]/HCC) Essential hypertension Other hyperlipidemia Chronic gastroesophageal reflux [...] Routine 11/10/2024 10:26 AM EST Healthcare maintenance documented in this encounter Results * Vitamin B12 (Cobalamin) and Folate Panel, Serum (11/11/2024 8:10 AM EST) Vitamin B12 669 200 - 900 pg/mL [facility] Comment:NORMAL 200-900 PG/ML INDETERMINATE 160-199 PG/ML DEFICIENT < 160 PG/ML Folate 15.6 > or = 4.0 ng/mL [facility] Comment:Reference Values:> o r = [...] ORDERABLES Final R esult Performing Organization Address City/[facility]/ZIP Co de Phone Number [facility] [address] [place] [phone] * Hepatitis B Core Antibody, Total (11/11/2024 8:10 AM EST) Hepatitis B Core Antibody Nonreactive Nonreactive [facility] Blood Venous blood specimen / Unknown 11/11/2024 8:10 AM EST 11/11/2024 11:28 AM EST Payton Streeter DO LAB BLOOD ORDERABLES Final R esult Performing Organization Address City/[facility]/ZIP Co de Phone Number [facility] [address] [place] [phone] * Hepatitis A Antibody, Total (11/11/2024 8:10 AM EST) Hepatitis A Antibody IgG REACTIVE Nonreactive [facility] Comment:The presence of IgG anti-HAV implies past HAV infection(recent or distant) or vaccination against HAV. Blood Venous blood specimen / Unknown 11/11/2024 8:10 AM EST 11/11/2024 11:28 AM EST Payton Streeter DO LAB BLOOD ORDERABLES Final R esult Performing Organization Address City/[facility] Co de Phone Number [facility] [address] [place] [phone] * Hepatitis B Surface Antibody, Qualitative (11/11/2024 8:10 AM EST) ~Hepatitis B Surface Antibody NONREACTIVE Nonreactive [facility] Comment:Nonreactive: < 8.00 mIU/mL Blood Venous blood specimen / Unknown 11/11/2024 8:10 AM EST 11/11/2024 11:28 AM EST Payton Streeter DO LAB BLOOD ORDERABLES Final R esult Performing Organization Address [facility] Co de Phone Number [facility] [address] [place] [phone] * RPR (Monitor) with Reflex to??Titer (11/11/2024 8:10 AM EST) RPR (Monitor) w/Refl Titer NON-REACTI VE NON-REACT OMAR [facility] Comment:THIS TEST WAS PERFOR MED AT:[facility] [place] [phone] PETERSON MD Rapid Plasma Reagin Ab Titer TNP [facility] Blood Venous blood specimen / Unknown 11/11/2024 8:10 AM EST 11/11/2024 11:28 AM EST Payton Haleyak LAB BLOOD ORDERABLES Final R esult Performing Organization Address [facility]/ZIP Co de Phone Number [facility] [address] [place] [phone] * Hepatitis C Antibody with Reflex to HCV, RNA, Quantitative, Real-Time PCR (11/11/2024 8:10 AM EST) Hepatitis C Antibody Nonreactive Nonreactive [facility] Comment:Antibodies to HCV no t detected; does not exclude early acuteHCV infection. Blood Venous blood specimen / Unknown 11/11/2024 8:10 AM EST 11/11/2024 11:28 AM EST Payton Streeter LAB BLOOD ORDERABLES Final R esult Performing Organization Address [facility] Co de Phone Number [facility] [address] [place] [phone] * HIV-1/2 Antigen and Antibodies, Fourth Generation, with Reflexes (11/11/2024 8:10 AM EST) HIV AB/AG Nonreactive Nonreactive [facility] Comment:HIV-1 p24 Ag and/or HIV-1/HIV-2 Ab not detected.A test result that is nonreactive does not exclude thepossibility of exposure to or infection with HIV-1 and/orHIV-2. Nonreactive results in this assay for individualswith prior exposure to HIV-1 and/or HIV-2 may be due toantigen and antibody levels that are below the limit ofdetection of this assay.[facility] HIV Ag/Ab Combo assay result andsupplemental assay results should be interpreted inconjunction with the patient's clinical presentation,history and other laboratory results. If the results areinconsistent with clinical evidence, additional testing issuggested to confirm the result. Blood Venous blood specimen / Unknown 11/11/2024 8:10 AM EST 11/11/2024 11:28 AM EST Result [facility] Payton Streeter DO LAB BLOOD ORDERABLES Final R esult [facility] [address] [place] [phone] * Chlamydia/N. Gonorrhoeae RNA, TMA, Urogenitial (11/11/2024 8:10 AM EST) CT PCR NOT DETECTED Not Detect. [facility] Comment:A not detected test result [...] psychologicalconsequences. NG PCR NOT DETECTED Not Detect. [facility] Comment:A not detected test result [...] AM EST 11/11/2024 11:23 AM EST Narrative [facility] - 11/11/2024 1:42 PM EST Urine Payton Streeter DO LAB MICROBIOLOGY - GENERAL O RDERABLES Final Result Performing Organization Address City/[facility]/ZIP Co de Phone Number [facility] [address] [place] [phone] * Hepatitis B surface antigen, EIA (11/11/2024 8:10 AM EST) Hepatitis B Surface Ag Negative Negative [facility] Blood Venous blood specimen / Unknown 11/11/2024 8:10 AM EST 11/11/2024 11:28 AM EST us Payton Streeter DO LAB BLOOD ORDERABLES Final R esult Performing Organization Address [facility] de Phone Number [facility] [address] [place] [phone] * Albumin, Random Urine W/Creatinine (11/11/2024 8:10 AM EST) Creatinine, Urine 215.97 mg/dL [facility] Microalbumin Urine 20.0 mg/L [facility] Microalbum Creatinine Ratio Ur 9.2 <30 ug/mg cr [facility] Comment:Albumin/Creatinine R atio Reference Ranges: Normal: < 30 ug/mg creatinine Microalbuminuria: 30 - 300 ug/mg creatinineClinical Albuminuria: > 300 ug/mg creatinine Urine (Urine, Random) 11/11/2024 8:10 AM EST 11/11/2024 11:23 AM EST Payton Streeter DO LAB URINE ORDERABLES Final R esult Performing Organization Address [facility] Co de Phone Number [facility] [address] [place] [phone] * (ABNORMAL) CBC (11/11/2024 8:10 AM EST) White Blood Count 6.8 4.8 - 10.8 X10*3/uL [facility] Red Blood Count 4.45(L) 4.60 - 5.80 X10*6/uL [facility] Hemoglobin 13.5(L) 14.0 - 18.0 g/dl [facility] Hematocrit 40.9(L) 42.0 - 52.0 % [facility] Mean Corpuscular Volume 91.9 80.0 - 98.0 fL [facility] Mean Corpuscular Hemoglobin 30.3 27.0 - 33.0 pg [facility] Mean Corpuscular HGB Conc 33.0 31.0 - 36.0 g/dl [facility] Red Cell Distribution Width 14.0 11.0 - 16.0 % [facility] Platelet Count 164 160 - 400 X10*3/uL [facility] Mean Platelet Volume 11.2 9.4 - 12.4 fL [facility] NRBC Pct Auto 0.0 0.0 - 0.2 /100WBC [facility] NRBC Abs Auto 0.000 0.0 - 0.012 X10*3/uL [facility] Blood Venous blood specimen / Unknown 11/11/2024 8:10 AM EST 11/11/2024 11:28 AM EST us Payton Streeter DO LAB BLOOD ORDERABLES Final R esult [facility] [address] [place] [phone] * (ABNORMAL) Basic Metabolic Panel (11/11/2024 8:10 AM EST) Sodium 143 135 - 145 mmol/L [facility] Potassium 3.9 3.3 - 5.1 mmol/L [facility] Chloride 110(H) 96 - 108 mmol/L [facility] Carbon Dioxide 27 22 - 29 mmol/L [facility] Anion Gap 10(L) 12 - 20 [facility] Urea Nitrogen (BUN) 19(H) 9 - 16 mg/dL [facility] Creatinine, Serum 1.07 0.5 - 1.4 mg/dL [facility] Estimated Glomerular Filt Rate >60 [facility] Comment:Chronic Kidney Disea se: Estimated GFR < 60 mL/min/[id number] Kidney Disease: Estimated GFR < 15 mL/min/1.73m2 Glucose 141(H) 60 - 115 mg/dL [facility] Calcium 9.2 8.4 - 10.2 mg/dL [facility] Blood Venous blood specimen / Unknown 11/11/2024 8:10 AM EST 11/11/2024 11:28 AM EST us Payton Streeter DO LAB BLOOD ORDERABLES Final R esult Performing Organization Address [facility]/ZIP Co de Phone Number [facility] [address] [place] [address] [phone] * (ABNORMAL) Hemoglobin A1c (11/11/2024 8:10 AM EST) Hemoglobin A1c 6.1(H) <6.0 % [facility] Comment:Hemoglobin A1C Refer ence Range Adults: 4.8 - 6.0 % Non diabetic: < 6.0 % Goal: < 7.0 %Additional Action Suggested: > 8.0 %Note: Hemoglobin A1c results are invalid for patients with abnormal amounts of HbF. Blood transfusions may impact the HbA1c concentration in the patient sample. Estimated Average Glucose 128 mg/dL [facility] Comment:eAG = Estimated ave rage glucose which is %A1C expressed asaverage glucose, using the formula of the C4F-UrniingZvrzorz Glucose study (ADAG), Diabetes Care, Vol.31,#8,2007 Blood Venous blood specimen / Unknown 11/11/2024 8:10 AM EST 11/11/2024 11:28 AM EST us Payton Streeter DO LAB BLOOD ORDERABLES Final R esult Performing Organization Address City/[facility]/ZIP Co de Phone Number [facility] [address] [place] [address] [phone] * (ABNORMAL) Hepatic Function Panel (11/11/2024 8:10 AM EST) Bilirubin, Total 0.9 0.0 - 1.0 mg/dL [facility] Bilirubin, Direct 0.3 0.0 - 0.5 mg/dL [facility] Aspartate Amino Transferase 21 5 - 37 U/L [facility] Alanine Aminotransferase 21 0 - 40 U/L [facility] Total Protein 7.0 6.5 - 8.0 g/dL [facility] Albumin Level 4.3 3.5 - 5.0 g/dL [facility] Alkaline Phosphatase 33(L) 39 - 117 U/L [facility] Blood Venous blood specimen / Unknown 11/11/2024 8:10 AM EST 11/11/2024 11:28 AM EST Payton Streeter LAB BLOOD ORDERABLES Final R esult Performing Organization Address City/[facility]/ZIP Co de Phone Number [facility] [address] [place] [address] [phone] * TSH (11/11/2024 8:10 AM EST) Thyroid Stimulating Hormone 1.40 0.32 - 4.0 uIU/mL [facility] Comment:TSH 3rd Generation ( Hybrent) Blood Venous blood specimen / Unknown 11/11/2024 8:10 AM EST 11/11/2024 11:28 AM EST [employer] LAB BLOOD ORDERABLES Final R esult Performing Organization Address City/[facility]/ZIP Co de Phone Number [facility] [address] [place] [address] [phone] * Lipid Panel, Standard (11/11/2024 8:10 AM EST) Triglycerides 76 <150 mg/dL [facility] Comment:Desirable Triglyceri de: less than 150 mg/dLBorderline High Triglyceride 150-199 mg/dLHigh Triglyceride: 200-499 mg/dLVery High Triglyceride: greater than or equal to 5OO mg/dL Cholesterol 150 <200 mg/dL [facility] Comment:Desirable Cholestero l: less than 200 mg/dLBorderline High Cholesterol: 200-239 mg/dLHigh Cholesterol: greater than 239 mg/dL LDL Cholesterol Calculated 90 <100 mg/dL [facility] Comment:Desirable LDL: less than 100 mg/dLNear Optimal/Above Optimal LDL: 110- 129 mg/dLBorderline High LDL: 130-159 mg/dLHigh LDL: 160-189 mg/dLVery High LDL: greater than or equal to 190 mg/dL HDL Cholesterol 45 >40 mg/dL [facility] Comment:Desirable HDL: great er than 40 mg/dL Note: This HDL assay may give artificially low results in patients with liver disease. Blood Venous blood specimen / Unknown 11/11/2024 8:10 AM EST 11/11/2024 11:28 AM EST us Payton Streeter DO LAB BLOOD ORDERABLES Final R esult [facility] [address] [place] [phone] * Vitamin D, 25-Hydroxy, Total, Immunoassay (11/11/2024 8:10 AM EST) Vitamin D 25-OH Total 38.7 >30 ng/mL [facility] Comment:Health Based Referen ce Values*< 20 ng/mL [id number] ng/mL Insufficient> 30 ng/mL Sufficient*Chrissie FONSECA. N [...] AM EST 11/11/2024 11:28 AM EST Payton Haleyrossy DO LAB BLOOD ORDERABLES Final R esult Performing Organization Address City/[facility] Co de Phone Number [facility] [address] [place] [address] [phone] * T4, Free (11/11/2024 8:10 AM EST) Pathologist [facility] Free T4 (Free Thyroxine) 1.24 0.71 - 1.85 ng/dL [facility] Blood Venous blood specimen / Unknown 11/11/2024 8:10 AM EST 11/11/2024 11:28 AM EST Payton Syl MUSTAFA LAB BLOOD ORDERABLES Final R esult Performing Organization Address City/[facility] Co de Phone Number [facility] [address] [place] [address] [phone] * (ABNORMAL) POCT HGB A1C (11/10/2024 10:27 AM EST) [facility] Hemoglobin A1C 6.4(A) 4.0 - 6.0 % QC Media Lot # [id number] Lot# Expiration Date Blood 11/10/2024 10:2 7 AM EST Payton Haleyrossy MUSTAFA POINT OF CARE TEST ENTER/KYLER T ORDERABLES Final Result * (ABNORMAL) POCT Glucose (11/10/2024 10:26 AM EST) Pathologist [facility] Glucose Blood, POC 317(A) 60 - 200 mg/dL [employer] Lot # [id number] Lot# Expiration Date 172,025 Blood Capillary blood specimen / Unknown 11/10/2024 10:26 AM EST Payton Streeter DO POINT OF CARE TEST ENTER/KYLER T ORDERABLES Final Result documented in this encounter Visit Diagnoses Diagnosis Type 2 diabetes mellitus without complication, without long-term current use of insulin ([facility])- Primary Essential hypertension Unspecified essential hypertension Other hyperlipidemia Chronic gastroesophageal reflux disease Chronic allergic rhinitis Benign prostatic hyperplasia, unspecified whether lower urinary tract symptoms present History of tobacco use Personal history of tobacco use, presenting hazards to health Concern about memory History of colonic polyps Personal history of colonic polyps Healthcare maintenance BMI 27.0-27.9,adult Encounter for immunization documented in this encounter Additional Health Concerns Assessment Noted Time PHQ-9 Depression Total Score: 3 11/10/19 10:22 AM EST documented as of this encounter Care Teams Maintenance And Utilities Supervisor Relationship Specialty Start Date End Date Payton Streeter DO [address] [place] [phone] PCP - General Family Medicine 11/10/24 documented as of this encounter
== END 2024-12-02 09:58 | disposition home or self-care (01) ==
LOC: HO.US 09:57
PROVIDERS: PCP Physician Assistant Medical; Visit Provider Family Medicine
DX: Z13.6 Encounter for screening for cardiovascular disorders (principal); Z87.891 Personal history of nicotine dependence
CPT/HCPCS: 76775

== ENCOUNTER → 2024-12-02 10:02 | Outpatient (BNV) | payer OTHER, SELFPAY | PROVIDERS: PCP Physician Assistant Medical; Visit Provider Radiology Vascular & Interventional Radiology | DX: I77.811 Abdominal aortic ectasia (principal) | CPT/HCPCS: 76775 ==

== ENCOUNTER 2024-12-23 09:45 | Outpatient (REF) | payer OTHER, SELFPAY ==
--- NOTE | ~2024-12-23 | CT_ITS ---
CLINICAL HISTORY: FORGETFULLNESS CT head without contrast Comparison: None Findings: No intra-axial mass, midline shift, hydrocephalus, or acute hemorrhage. No significant atrophy-like change or white matter disease. Posterior fossa structures intact. Pituitary, parasellar, hypothalamic and pineal regions are unremarkable. Lobulated lucency along the inner table of the anterior left parietal bone compatible with a prominent arachnoid granulation. Otherwise skull intact. Hypoplastic mastoids. Mild mucoperiosteal thickening of the left maxillary and bilateral ethmoids. No sinus opacification. Bilateral cataract surgery. Otherwise globes, optic nerves, extraocular muscles and retrobulbar fat are unremarkable. IMPRESSION: Normal noncontrast head CT Mild chronic paranasal sinus changes as noted. This document has been electronically signed by: Kingsley Mckeon MD on 12/23/2024 12:19:52
--- OUTSIDE RECORDS SUMMARY | 2024-12-23 10:33 | XMS_ITS | Clinical Summary ---
Author Organization [employer] Address [address] [facility] 7t [place] [address] Care Team Providers Care Curve Cleaner Name Role Phone Payton Streeter Primary Care [...] Department Care Team Description 12/02/2024 Orders Only [facility] [address] [place] [phone] Payton Streeter DO 11/10/2024 10:15 AM EST Office Visit [address] [address] Payton Streeter DO Type 2 diabetes mellitus without complication, without long-term current use of insulin ([facility]) (Primary Dx); Essential hypertension; Other hyperlipidemia; Chronic gastroesophageal reflux disease; Chronic allergic rhinitis; Benign prostatic hyperplasia, unspecified whether lower urinary tract symptoms present; History of tobacco use; Concern about memory; History of colonic polyps; Healthcare maintenance; BMI 27.0-27.9,adult; Encounter for immunization 11/10/2024 Travel 11/08/2024 Telephone [facility] [address] [place] [address] Anni Welch MA Chart Prep from Last 3 Months Immunizations Name Administration Dates Next Due Influenza, IIV3, injectable 10/17/2022,1 ,07/17/2020,09/06/2019, Pfizer Covid-19 Vaccine 12+ 11/10/2024,1 12/09/2021,09/12/2021,01/04/2021, Pneumococcal Conjugate PCV 13 03/09/2019, 018 Tdap 02/02/2018 Family History Medical History Relation Name Comments [...] Diabetes: Foot Exam 1951 Eye Exam 1951 Zoster Vaccines (1 of 2) 1991 RSV Patients and Patients Aged 60 years or older (1 - 1-dose 75+ series) 2016 Pneumococcal Vaccine: 50+ Years (2 of 2 - PPSV23) 05/04/2019 03/09/2019, 02/02/2018 Influenza Vaccine (#1) 2024 , 08/21/2021, 07/17/2020, Additional history exists Diabetes: Hemoglobin A1C 05/11/2025 11/11/2024, 06/2025 Alcohol/Substance Use Screening 11/10/2025 11/10/2024 Depression Screening 11/10/2025 11/10/2024, 11/10/19 SDOH Screening 11/10/2025 11/10/2024 Tobacco Screening 11/10/2025 11/10/2024 Diabetes: Urine Protein Screening 11/11/2025 11/11/2024 Lipid Panel 11/11/2025 11/11/2024 DTaP/Tdap/Td Vaccines (2 - Td or Tdap) 02/03/2028 02/02/2018 COVID-19 Vaccine Completed 11/10/2024, 04/2022, 09/12/2021, Additional history exists HIB Vaccines Aged Out No longer eligi [...] complication, without long-term current use of insulin ([facility]/HCC) Essential hypertension Other hyperlipidemia Chronic gastroesophageal reflux [...] complication, without long-term current use of insulin ([facility]) Essential hypertension Other hyperlipidemia Chronic gastroesophageal reflux disease Chronic allergic rhinitis Benign prostatic hyperplasia, unspecified whether lower urinary tract symptoms present History of tobacco use Concern about memory Healthcare maintenance BMI 27.0-27.9,adult LIPID PANEL, STANDARD Routine 11/11/2024 8:10 AM EST Type 2 diabetes mellitus without complication, without long-term current use of insulin ([facility]/HCC) Essential hypertension Other hyperlipidemia Chronic gastroesophageal reflux disease Chronic allergic rhinitis Benign prostatic hyperplasia, unspecified whether lower urinary tract symptoms present History of tobacco use Concern about memory Healthcare maintenance BMI 27.0-27.9,adult VITAMIN D,25-OH,TOTAL,IA Routine 11/11/2024 8:10 AM EST Type 2 diabetes mellitus without complication, without long-term current use of insulin ([facility]/HCC) Essential hypertension Other hyperlipidemia Chronic gastroesophageal reflux [...] complication, without long-term current use of insulin ([facility]) Essential hypertension Other hyperlipidemia Chronic gastroesophageal reflux [...] EST Narrative 12/02/2024 12:13 PM EST ? [facility] ?[address] ?[place] [address] ? Ultrasound Report ? Signed ? Patient: Colon Morin,Ace ?MR#: ?? [id number] ? : 1940 ?Acct:[id number] ? Age/Sex: 83 / M ?ADM Date: 12/02/24 ? Loc: HO.US ? Attending Dr: Payton Streeter DO ? Ordering Physician: Payton Streeter DO ?? Date of Service: 12/02/24 ?? Procedure(s): US aorta ?? Accession Number(s): [id number] ? cc: Payton Streeter DO; Karthik Blankenship [...] by Addy Gonzalez MD in OV> ? 12/02/24 1213 ? DD/ 1211 ? TD/TT: 12/02/24 1211 ? Drapery Operator: ? Procedure Note Donamrgauxter, Image - 12/02/2024 [place] [address] Ultrasound Report Signed Patient: Angel Easley#: [id number] : 2Acct:[id number] Age/Sex: 83 / MADM Date: 12/02/24 Loc: HO.US Attending Dr: Payton Streeter DO Ordering Physician: Payton Streeter DO Date of Service: 12/02/24 Procedure(s): US aorta Accession Number(s): [id number] cc: Payton Streeter DO; Karthik Blankenship CLINICAL [...] 12/02/24 1213 DD/ 1211 TD/TT: 12/02/24 1211 Drapery Operator: us Payton Streeter DO IMG US PROCEDURES Final Resu lt * Vitamin D, 25-Hydroxy, Total, Immunoassay (11/11/2024 8:10 AM EST) Vitamin D 25-OH Total 38.7 >30 ng/mL [facility] Comment:Health Based Referen ce Values*< 20 ng/mL [id number] ng/mL Insufficient> 30 ng/mL Sufficient*Chrissie FONESCA. N Engl J Med. 2007;357:266-280Care must be [...] DO LAB BLOOD ORDERABLES Final R esult [facility] [address] [place] [phone] * Vitamin B12 (Cobalamin) and Folate Panel, Serum (11/11/2024 8:10 AM EST) Vitamin B12 669 200 - 900 pg/mL [facility] Comment:NORMAL 200-900 PG/ML INDETERMINATE 160-199 PG/ML DEFICIENT < 160 PG/ML Folate 15.6 > or = 4.0 ng/mL [facility] Comment:Reference Values:> o r = 4.0 [...] ORDERABLES Final R esult Performing Organization Address City/[facility]/ZIP Co de Phone Number [facility] [address] [place] [phone] * Albumin, Random Urine W/Creatinine (11/11/2024 8:10 AM EST) Creatinine, Urine 215.97 mg/dL [facility] Microalbumin Urine 20.0 mg/L [facility] Microalbum Creatinine Ratio Ur 9.2 <30 ug/mg cr [facility] Comment:Albumin/Creatinine R atio Reference Ranges: Normal: < 30 ug/mg creatinine Microalbuminuria: 30 - 300 ug/mg creatinineClinical Albuminuria: > 300 ug/mg creatinine Urine (Urine, Random) 11/11/2024 8:10 AM EST 11/11/2024 11:23 AM EST Payton Streeter DO LAB URINE ORDERABLES Final R esult Performing Organization Address [facility] Co de Phone Number [facility] [address] [place] [phone] * Hepatitis C Antibody with Reflex to HCV, RNA, Quantitative, Real-Time PCR (11/11/2024 8:10 AM EST) Hepatitis C Antibody Nonreactive Nonreactive [facility] Comment:Antibodies to HCV no t detected; does not exclude early acuteHCV infection. Blood Venous blood specimen / Unknown 11/11/2024 8:10 AM EST 11/11/2024 11:28 AM EST Payton Streeter DO LAB BLOOD ORDERABLES Final R esult Performing Organization Address City/[facility]/ZIP Co de Phone Number [facility] [address] [place] [phone] * Hepatitis A Antibody, Total (11/11/2024 8:10 AM EST) Pathologist [facility] Hepatitis A Antibody IgG REACTIVE Nonreactive [facility] Comment:The presence of IgG anti-HAV implies past HAV infection(recent or distant) or vaccination against HAV. Blood Venous blood specimen / Unknown 11/11/2024 8:10 AM EST 11/11/2024 11:28 AM EST us Payton Streeter DO LAB BLOOD ORDERABLES Final R esult [facility] [address] [place] [phone] * Chlamydia/N. Gonorrhoeae RNA, TMA, Urogenitial (11/11/2024 8:10 AM EST) [facility] CT PCR NOT DETECTED Not Detect. [facility] Comment:A not detected test result does [...] psychologicalconsequences. NG PCR NOT DETECTED Not Detect. [facility] Comment:A not detected test result does [...] AM EST 11/11/2024 11:23 AM EST Narrative [facility] - 11/11/2024 1:42 PM EST Urine Payton Streeter DO LAB MICROBIOLOGY - GENERAL O RDERABLES Final Result Performing Organization Address [facility] Co de Phone Number [facility] [address] [place] [phone] * Hepatitis B surface antigen, EIA (11/11/2024 8:10 AM EST) Hepatitis B Surface Ag Negative Negative [facility] Blood Venous blood specimen / Unknown 11/11/2024 8:10 AM EST 11/11/2024 11:28 AM EST Payton Streeter DO LAB BLOOD ORDERABLES Final R esult Performing Organization Address [facility] Co de Phone Number [facility] [address] [place] [phone] * Hepatitis B Core Antibody, Total (11/11/2024 8:10 AM EST) Hepatitis B Core Antibody Nonreactive Nonreactive [facility] Blood Venous blood specimen / Unknown 11/11/2024 8:10 AM EST 11/11/2024 11:28 AM EST Payton Streeter DO LAB BLOOD ORDERABLES Final R esult Performing Organization Address [facility] Co de Phone Number [facility] [address] [place] [phone] * RPR (Monitor) with Reflex to??Titer (11/11/2024 8:10 AM EST) RPR (Monitor) w/Refl Titer NON-REACTI VE NON-REACT OMAR [facility] Comment:THIS TEST WAS PERFOR MED AT:[facility] [place] [phone] PETERSON MD Rapid Plasma Reagin Ab Titer TNP [facility] Blood Venous blood specimen / Unknown 11/11/2024 8:10 AM EST 11/11/2024 11:28 AM EST Payton Streeter DO LAB BLOOD ORDERABLES Final R esult [facility] [address] [place] [phone] * HIV-1/2 Antigen and Antibodies, Fourth Generation, with Reflexes (11/11/2024 8:10 AM EST) HIV AB/AG Nonreactive Nonreactive [facility] Comment:HIV-1 p24 Ag and/or HIV-1/HIV-2 Ab not detected.A test result that is nonreactive does not exclude thepossibility of exposure to or infection with HIV-1 and/orHIV-2. Nonreactive results in this assay for individualswith prior exposure to HIV-1 and/or HIV-2 may be due toantigen and antibody levels that are below the limit ofdetection of this assay.The Telecardia HIV Ag/Ab Combo assay result andsupplemental assay results should be interpreted inconjunction with the patient's clinical presentation,history and other laboratory results. If the results areinconsistent with clinical evidence, additional testing issuggested to confirm the result. Blood Venous blood specimen / Unknown 11/11/2024 8:10 AM EST 11/11/2024 11:28 AM EST Payton Jurcsak DO LAB BLOOD ORDERABLES Final R esult Performing Organization Address City/[facility]/ZIP Co de Phone Number [facility] [address] [place] [phone] * Hepatitis B Surface Antibody, Qualitative (11/11/2024 8:10 AM EST) [facility] ~Hepatitis B Surface Antibody NONREACTIVE Nonreactive [facility] Comment:Nonreactive: < 8.00 mIU/mL Blood Venous blood specimen / Unknown 11/11/2024 8:10 AM EST 11/11/2024 11:28 AM EST Payton Syl DO LAB BLOOD ORDERABLES Final R esult Performing Organization Address [facility] Co de Phone Number [facility] [address] [place] [phone] * (ABNORMAL) CBC (11/11/2024 8:10 AM EST) [facility] White Blood Count 6.8 4.8 - 10.8 X10*3/uL [facility] Red Blood Count 4.45(L) 4.60 - 5.80 X10*6/uL [facility] Hemoglobin 13.5(L) 14.0 - 18.0 g/dl [facility] Hematocrit 40.9(L) 42.0 - 52.0 % [facility] Mean Corpuscular Volume 91.9 80.0 - 98.0 fL [facility] Mean Corpuscular Hemoglobin 30.3 27.0 - 33.0 pg [facility] Mean Corpuscular HGB Conc 33.0 31.0 - 36.0 g/dl [facility] Red Cell Distribution Width 14.0 11.0 - 16.0 % [facility] Platelet Count 164 160 - 400 X10*3/uL [facility] Mean Platelet Volume 11.2 9.4 - 12.4 fL [facility] NRBC Pct Auto 0.0 0.0 - 0.2 /100WBC [facility] NRBC Abs Auto 0.000 0.0 - 0.012 X10*3/uL [facility] Blood Venous blood specimen / Unknown 11/11/2024 8:10 AM EST 11/11/2024 11:28 AM EST Payton Syl DO LAB BLOOD ORDERABLES Final R esult [facility] [address] [place] [phone] * TSH (11/11/2024 8:10 AM EST) Thyroid Stimulating Hormone 1.40 0.32 - 4.0 uIU/mL [facility] Comment:TSH 3rd Generation ( [facility]) Blood Venous blood specimen / Unknown 11/11/2024 8:10 AM EST 11/11/2024 11:28 AM EST Payton Streeter DO LAB BLOOD ORDERABLES Final R esult Performing Organization Address City/[facility]/ZIP Co de Phone Number [facility] [address] [place] [phone] * T4, Free (11/11/2024 8:10 AM EST) Free T4 (Free Thyroxine) 1.24 0.71 - 1.85 ng/dL [facility] Blood Venous blood specimen / Unknown 11/11/2024 8:10 AM EST 11/11/2024 11:28 AM EST Payton Syl DO LAB BLOOD ORDERABLES Final R esult Performing Organization Address City/[facility]/ZIP Co de Phone Number [facility] [address] [place] [phone] * (ABNORMAL) Hemoglobin A1c (11/11/2024 8:10 AM EST) Hemoglobin A1c 6.1(H) <6.0 % [facility] Comment:Hemoglobin A1C Refer ence Range Adults: 4.8 - 6.0 % Non diabetic: < 6.0 % Goal: < 7.0 %Additional Action Suggested: > 8.0 %Note: Hemoglobin A1c results are invalid for patients with abnormal amounts of HbF. Blood transfusions may impact the HbA1c concentration in the patient sample. Estimated Average Glucose 128 mg/dL [facility] Comment:eAG = Estimated ave rage glucose which is %A1C expressed asaverage glucose, using the formula of the A2R-AfzhbkpQewdpus Glucose study (ADAG), Diabetes Care, Vol.31,#8,Jun. 2007 Blood Venous blood specimen / Unknown 11/11/2024 8:10 AM EST 11/11/2024 11:28 AM EST Payton Streeter DO LAB BLOOD ORDERABLES Final R esult Performing Organization Address [facility] Co de Phone Number [facility] [address] [place] [phone] * (ABNORMAL) Hepatic Function Panel (11/11/2024 8:10 AM EST) Bilirubin, Total 0.9 0.0 - 1.0 mg/dL [facility] Bilirubin, Direct 0.3 0.0 - 0.5 mg/dL [facility] Aspartate Amino Transferase 21 5 - 37 U/L [facility] Alanine Aminotransferase 21 0 - 40 U/L [facility] Total Protein 7.0 6.5 - 8.0 g/dL [facility] Albumin Level 4.3 3.5 - 5.0 g/dL [facility] Alkaline Phosphatase 33(L) 39 - 117 U/L [facility] Blood Venous blood specimen / Unknown 11/11/2024 8:10 AM EST 11/11/2024 11:28 AM EST Payton Streeter DO LAB BLOOD ORDERABLES Final R esult Performing Organization Address City/[facility] Co de Phone Number [facility] [address] [place] [phone] * Lipid Panel, Standard (11/11/2024 8:10 AM EST) Triglycerides 76 <150 mg/dL [facility] Comment:Desirable Triglyceri de: less than 150 mg/dLBorderline High Triglyceride 150-199 mg/dLHigh Triglyceride: 200-499 mg/dLVery High Triglyceride: greater than or equal to 5OO mg/dL Cholesterol 150 <200 mg/dL [facility] Comment:Desirable Cholestero l: less than 200 mg/dLBorderline High Cholesterol: 200-239 mg/dLHigh Cholesterol: greater than 239 mg/dL LDL Cholesterol Calculated 90 <100 mg/dL [facility] Comment:Desirable LDL: less than 100 mg/dLNear Optimal/Above Optimal LDL: 110- 129 mg/dLBorderline High LDL: 130-159 mg/dLHigh LDL: 160-189 mg/dLVery High LDL: greater than or equal to 190 mg/dL HDL Cholesterol 45 >40 mg/dL [facility] Comment:Desirable HDL: great er than 40 mg/dL Note: This HDL assay may give artificially low results in patients with liver disease. Blood Venous blood specimen / Unknown 11/11/2024 8:10 AM EST 11/11/2024 11:28 AM EST us Payton Streeter DO LAB BLOOD ORDERABLES Final R esult [facility] [address] [place] [phone] * (ABNORMAL) Basic Metabolic Panel (11/11/2024 8:10 AM EST) Sodium 143 135 - 145 mmol/L [facility] Potassium 3.9 3.3 - 5.1 mmol/L [facility] Chloride 110(H) 96 - 108 mmol/L [facility] Carbon Dioxide 27 22 - 29 mmol/L [facility] Anion Gap 10(L) 12 - 20 [facility] Urea Nitrogen (BUN) 19(H) 9 - 16 mg/dL [facility] Creatinine, Serum 1.07 0.5 - 1.4 mg/dL [facility] Estimated Glomerular Filt Rate >60 [facility] Comment:Chronic Kidney Disea se: Estimated GFR < 60 mL/min/1.08u2Sobihs Kidney Disease: Estimated GFR < 15 mL/min/1.73m2 Glucose 141(H) 60 - 115 mg/dL [facility] Calcium 9.2 8.4 - 10.2 mg/dL [facility] Blood Venous blood specimen / Unknown 11/11/2024 8:10 AM EST 11/11/2024 11:28 AM EST Payton Streeter DO LAB BLOOD ORDERABLES Final R esult [facility] [address] [place] [phone] * (ABNORMAL) POCT HGB A1C (11/10/2024 10:27 AM EST) Hemoglobin A1C 6.4(A) 4.0 - 6.0 % QC Media Lot # [id number] Lot# Expiration Date Blood 11/10/2024 10:2 7 AM EST Payton Streeter DO POINT OF CARE TEST ENTER/KYLER T ORDERABLES Final Result * (ABNORMAL) POCT Glucose (11/10/2024 10:26 AM EST) Glucose Blood, POC 317(A) 60 - 200 mg/dL QC Media Lot # [id number] Lot# Expiration Date 025 Blood Capillary blood specimen / Unknown 11/10/2024 10:26 AM EST Payton Streeter DO POINT OF CARE TEST ENTER/KYLER T ORDERABLES Final Result from Last 3 Months Insurance [facility] STANDARD [facility] DUAL COMPLETE Care Teams Curve Cleaner Relationship Specialty Start Date End Date Payton Streeter DO [address] [place] [address] PCP - General Family Medicine 11/10/24
--- OUTSIDE RECORDS SUMMARY | 2024-12-23 10:33 | XMS_ITS | Encounter Summary ---
Author Organization [employer] Address [address] [facility] [address]t [place] [address] Care Team Providers Care Glass Handler Name Role Phone Payton Streeter DO Primary Care Provider + [phone] Encounter Details Date Type Department Care Team (Late st Contact Info) Description 12/02/2024 Orders Only [facility] [address] [place], [place] [phone] Payton Streeter DO [address] [place], [place] [phone] Social History Tobacco Use Types Packs/Day Years [...] on file documented as of this encounter Procedures Procedure Name Priority Date/Time Associated Diagnosis Comments US AORTA Routine 12/02/2024 12:11 PM EST documented in this encounter Results * US aorta (12/02/2024 12:11 PM EST) Anatomical Region Laterality Modality Abdomen Ultrasound 12/02/2024 12:1 1 PM EST Narrative 12/02/2024 12:13 PM EST ? [facility] ?[address] [place] [address] ? Ultrasound Report ? Signed ? Patient: Colon Morin,Ace ?MR#: ?? [id number] ? : 1940 ?Acct:[id number] ? Age/Sex: 83 / M ?ADM Date: 12/02/24 ? Loc: HO.US ? Attending Dr: Payton Streeter DO ? Ordering Physician: Payton Streeter DO ?? Date of Service: 12/02/24 ?? Procedure(s): US aorta ?? Accession Number(s): [id number] ? cc: Payton Streeter DO; Karthik Blankenship [...] MD ? Signed By: ?<Electronically signed by dAdy Gonzalez MD in OV> ? 12/02/241212 ? DD/ 1211 ? TD/TT: 12/02/24 1211 ? Roll Icer: ? Procedure Note Temirandall, Image - 12/02/[address] [address] Ultrasound Report Signed Patient: Angel Easley#: [id number] : 2Acct:[id number] Age/Sex: 83 / MADM Date: 12/02/24 Loc: HO.US Attending Dr: Payton Streeter DO Ordering Physician: Payton Streeter DO Date of Service: 12/02/24 Procedure(s): US aorta Accession Number(s): [id number] cc: Payton Streeter DO; Karthik Blankenship CLINICAL [...] 12/02/24 1213 DD/ 1211 TD/TT: 12/02/24 1211 Roll Icer: us Payton Streeter DO IMG US PROCEDURES Final Resu lt documented in this encounter Visit Diagnoses Not on filedocumented in this encounter Additional Health Concerns Assessment Noted Time PHQ-9 Depression Total Score: 3 11/10/19 25 10:22 AM EST documented as of this encounter Care Teams Glass Handler Relationship Specialty Start Date End Date Payton Streeter DO [address] [place] [address] PCP - General Family Medicine 11/10/24 documented as of this encounter
--- OUTSIDE RECORDS SUMMARY | 2024-12-23 10:33 | XMS_ITS | Clinical Summary ---
Author Organization [facility]y Address [address] [place] [address] Care Team Providers Care Professor Of Radiology Name Role Phone Tamika Hurley MD Primary Care Prov ider Allergies Active Allergy Reactions Criticality Noted Date Comments Iodinated Contrast Media 02/02/2018 Anxious, difficulty speaking Medications amLODIPine (NORVASC) 5 mg tablet Take 1 tablet (5 mg total) by mouth 1 (one) time each day. 4 Active aspirin (ASPIR-81 ORAL) Take 1 Tab by mouth daily (with breakfast). Active atorvastatin (LIPITOR) 10 mg tablet Take 1 tablet (10 mg total) by mouth at bedtime. 4 Active blood-glucose meter (ONETOUCH VERIO METER [facility]) Blood Glucose Monitoring Suppl (ONETOUCH VERIO) W/DEVICE Kit- 1 Device by Does not apply route See Admin Instructions. Check blood sugar once a day. Dx E11.9 9 Active cetirizine (ZyrTEC) 10 mg tablet Take 1 tablet (10 mg total) by mouth 1 (one) time each day. 4 Active diclofenac (VOLTAREN) 1 % topical gel Apply 4 g topically 5 times daily. 3 Active ceramides cream (CeraVe) cream moisturizing cream Apply twice a day to hands 0 Active fenofibrate (LOFIBRA) 160 mg tablet Take 1 tablet (160 mg total) by mouth 1 (one) time each day. 4 Active fluticasone propionate (FLONASE) 50 mcg/actuation nasal spray 1 [place] by Each Nare route daily. 0 Active glipiZIDE (GLUCOTROL XL) 2.5 mg 24 hr tablet Take 1 tablet (2.5 mg total) by mouth 1 (one) time each day. 4 Active blood sugar diagnostic (OneTouch Verio test strips) test strip Use to test blood sugar once a day. 4 05/08/20 25 Active ibuprofen (ADVIL,MOTRIN) 600 mg tablet Take 1 Tab by mouth 3 times daily as needed for Pain. 0 Active lisinopriL (PRINIVIL,ZESTRIL ) 2.5 mg tablet Take 1 tablet (2.5 mg total) by mouth 1 (one) time each day. 4 Active metFORMIN XR (GLUCOPHAGE-XR) 500 mg 24 hr tablet Take 1 tablet (500 mg total) by mouth 1 (one) time each day with breakfast. 4 Active mirabegron (Myrbetriq) 25 mg 24 hr tablet 2 Active omeprazole (PriLOSEC) [address] capsule Take 1 capsule (20 mg total) by mouth 1 (one) time each day. 4 Active [place]'s wort 300 mg capsule Take 1 capsule by mouth 1 (one) time each day. Active tamsulosin (FLOMAX) 0.4 mg 24 hr capsule TAKE 1 CAPSULE BY MOUTH DAILY. TAKE 30 MINS AFTER SAME MEAL EVERY DAY. 4 Active terbinafine (LamISIL) 1 % cream Apply 1 Units topically at bedtime. 8 Active lancets 33 gauge misc 1 Each by Does not apply route daily. Dx: E11.9 3 Active Active Problems Problem Noted Date Diagnosed Date Hydrocele, bilateral 09/05/2019 Overview (10/07/2024): [facility] 09/01/19 ZULEYMA (obstructive sleep apnea) 09/07/2018 Overview (10/07/2024): [facility] Home Polysomnogram: Date 09/02/2018; AHI 43, Unclassified apneas 44; Obstructive apneas 285; Central apneas 12; Mixed apneas 1; hypopneas 26; oxygen saturation data not recorded. [facility]. Date 10/12/2018. SE 55 [...] Bivalent, Or iginal + Ba.1 (Non-US Trademark COMIRNATY Bivalent) 10/08/2022 [employer] Plans SARS-CoV-2 COVID-19, mRNA, LNP-S, preservative free 01/04/2021,12/14/2020 Pneumococcal conjugate 13 va lent (Prevnar 13, PCV13) 2mo and older 02/02/2018 Pneumococcal polysaccharide 23 valent (Pneumovax 23) 2yo and older 03/09/2019 Tdap Tetanus diptheria acell ular pertussis (Boostrix; Adacel) 7yo and older 02/02/2018 Surgical History Surgery Date Site/Laterality Comments CHOLECYSTECTOMY 10/02/2017 PROCEDURE: HISTORICAL CHOLECYSTECTOMY; COMMENT: lap jessica OTHER SURGICAL HISTORY 11/04/2019 Left PROCEDURE: AK EXC HYDROCELE SPRMATIC CORD UNI SPX; COMMENT: [...] Recorded Sex Assigned at Not on file Legal Sex Male 1:55 PM EST Gender Identity Not on file Sexual Orientation [...] 11:30 AM EST Office Visit Adult Medicine [facility] [address] [place] [phone] Tamika Hurley MD [address] [place] [phone] Health Maintenance Due Date Last Done Comments [...] (Lipid Panel) 03/09/2029 03/09/2024, 03/09/2024 Pneumococcal Vaccine: 50+ Years Completed 03/09/2019, 02/02/2018 HIB Vaccines Aged [...] patient's age to complete this topic Meningococcal B Vacine Aged Out No lo nger eligible based on patient's age to complete [...] Results * Diabetes Foot Exam (04/13/2024) Pathologist [facility] Diabetes: Annual Foot Exam abstracted Result [facility] Provider HEALTH MAINTENANCE Final Result * Urine Albumin Creatinine Ratio (03/09/2024) Pathologist [facility] Urine Albumin Creatinine Ratio abstracted Result [facility] Provider HEALTH MAINTENANCE Final Result * Annual BMP Blood Test (03/09/2024) Pathologist [facility] Annual BMP Blood Test abstracted Result [facility] Provider HEALTH MAINTENANCE Final Result * Hemoglobin A1c (03/09/2024) [facility] Hemoglobin A1C 5.8 <=6.5 % Blood Venous blood specimen / Unknown Result [facility] Provider LAB BLOOD ORDERABLES Sandie l Result * (ABNORMAL) Lipid panel (03/09/2024) [facility] LDL/HDL Ratio 4 0 - 4 Triglycerides 174(A) 0 - 150 mg/dL Cholesterol 148 0 - 200 mg/dL HDL 39(A) >=40 mg/dL LDL Cholesterol 75 0 - 100 mg/dL Blood Venous blood specimen / Unknown us Historical Provider LAB BLOOD ORDERABLES Sandie guzman Result from Last 3 Months or Most Recently Relevant to Health Maintenance Care Teams Professor Of Radiology Relationship Specialty Start Date End Date Tamika Hurley MD PCP - General Internal Medicine 07/22/22
== END 2024-12-23 09:46 | disposition home or self-care (01) ==
LOC: HO.CT 09:45
PROVIDERS: PCP Physician Assistant Medical; Visit Provider Family Medicine
DX: Z71.1 Person with feared health complaint in whom no diagnosis is made (principal); R41.3 Other amnesia
CPT/HCPCS: 70450

== ENCOUNTER → 2024-12-23 09:47 | Outpatient (BNV) | payer OTHER, SELFPAY | PROVIDERS: PCP Physician Assistant Medical; Visit Provider Radiology Diagnostic Radiology | DX: R41.3 Other amnesia (principal) | CPT/HCPCS: 70450 ==

== ENCOUNTER 2025-04-20 11:11 | Outpatient (REF) | payer OTHER, SELFPAY ==
--- NOTE | ~2025-04-20 | XR_ITS ---
EXAMINATION: XR LUMBOSACRAL SPINE CLINICAL INFORMATION: LBP x 2 weeks COMPARISON: None available. TECHNIQUE: AP and lateral views. FINDINGS: Multilevel marginal osteophyte formation and endplate sclerosis in the axial skeleton. Incomplete ankylosis in the lower thoracic spine. No acute cortical disruption. No gross malalignment. No lytic or blastic lesions. Vascular clips in the right upper quadrant abdomen. Spina bifida occulta S1.. 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 Status post cholecystectomy. Electronically signed by: Donavon Marquez MD 04/20/2025 12:09 PM EDT
--- OUTSIDE RECORDS SUMMARY | 2025-04-20 12:57 | XMS_ITS | Encounter Summary ---
Author Organization [employer] Address [address] [facility] [address] [place] [address] Care Team Providers Care Chemical Cell Changer Name Role Phone Payton Streeter DO Primary Care Provider + [phone] Reason for Visit * Reason Onset Date Comments Med Refill 04/19/2025 Encounter Details Date Type Department Care Team (Late st Contact Info) Description 04/19/2025 Refill [facility] [address] [place], [place] [phone] Payton Streeter DO [address] [place], [place] [phone] Social History Tobacco Use Types Packs/Day Years [...] encounter Miscellaneous Notes * Telephone Encounter - Payton Das LPN - 04/19/2025 12:58 PM EDT Last seen 11/10/24. * Telephone Encounter - Radha Linda - 04/19/2025 12:41 PM EDT TC from pt requesting medication refill. Medications needing refill : amLODIPine (Norvasc) 5 MG tablet atorvastatin (Lipitor) 10 MG tablet cetirizine (ZyrTEC) 10 MG tablet fenofibrate (Triglide) 160 MG tablet lisinopril 2.5 MG tablet metFORMIN XR (Glucophage-XR) 500 MG 24 hr tablet omeprazole (PriLOSEC) [address] capsule To be sent to: [facility] [address] [place] [address] documented in this encounter Plan of Treatment Upcoming Encounters Date Type Department Care Team (Late st Contact Info) Description 05/05/2025 10:00 AM EDT Clinical Support [facility] [address] [place] [phone] 05/23/2025 10:00 AM EDT Clinical Support [address] [address] documented as of this encounter Visit Diagnoses Not on filedocumented in this encounter Additional Health Concerns Assessment Noted Time PHQ-9 Depression Total Score: 3 11/10/19 25 10:22 AM EST documented as of this encounter Care Teams Chemical Cell Changer Relationship Specialty Start Date End Date Payton Streeter DO [address] [place] [address] PCP - General Family Medicine 11/10/24 documented as of this encounter
== END 2025-04-20 11:12 | disposition home or self-care (01) ==
LOC: HO.HHCX 11:11
PROVIDERS: PCP Family Medicine; Visit Provider Family Medicine
DX: M54.50 Low back pain, unspecified (principal)
CPT/HCPCS: 72100

== ENCOUNTER → 2025-04-20 11:28 | Outpatient (BNV) | payer OTHER, SELFPAY | PROVIDERS: PCP Family Medicine; Visit Provider Radiology Diagnostic Radiology | DX: M47.895 Other spondylosis, thoracolumbar region (principal); Z90.49 Acquired absence of other specified parts of digestive tract | CPT/HCPCS: 72100 ==

== ENCOUNTER 2025-06-17 10:49 | Outpatient (AMB) | payer OTHER, MEDICAID, SELFPAY ==
--- NOTE | 2025-06-17 10:53 | MHC.OFFVIS ---
Vital Signs 06/17/25 10:58 Height 5 ft 5 in Weight 140 lb BMI 23.3 BP 124/69 Blood Pressure Location Rt brachial Position Sitting Pulse 67 Pulse Source Pulse Oximeter Pulse Oximetry (%) 97 Oxygen Delivery Method Room Air Intake Visit Reasons: BILATERAL LOW BACK PAIN Intake Note: Pain today 10 Lead Investigator Required: Yes Lead Investigator Language: [place] Cutter Operator Services: Lead Investigator Offered & Declined Lead Investigator Name: Daughter- Adry Accompanied by: Daughter Allergies Iodinated Contrast Media Adverse Reaction (Unknown, Verified 06/17/25 11:05) difficulty speaking HPI Comments Details: The patient is an 84-year-old male presenting with acute and chronic low back pain. The back pain has been present for approximately four weeks, with a history of lumbar spondylosis confirmed by imaging. The pain is described as non-radiating and does not involve numbness or tingling in the lower extremities. The patient has a history of hypertension, type 2 diabetes mellitus with recent A1C=6.1. He also has a history of CVA and is currently experiencing memory issues and confusion, for which he has been referred to Neurology. He has been using lidocaine patches, Tylenol and rarely Ibuprofen for pain management with temporary relief. Patient does not really have significant pain when sitting or resting, but pain increases as the day goes on and worse by bedtime if he sleeps on his back. The patient has not undergone any back surgery or injections previously and does not use any assistive devices for walking. He reports no significant pain when bending forward and maintains stability while walking. His imaging shows multilevel thoracolumbar arthritis and possible ankylosing spondylitis, with multilevel bone spurs noted. - Onset: Acute on chronic, present for 4 weeks - Quality: Aching, sharp and pressure-like, worsens at bedtime - Location: Lower back, non-radiating - Exacerbating factors: Activity, lifting heavy objects, prolonged standing or walking, upright positions, - Relieving factors: Rest, use of lidocaine patches, Tylenol, Ibuprofen (rarely for severe pain) - Affect: No specific impact on mood or psychological wellbeing discussed - Analgesia: Current pain level reported as 3/10, increasing to 5-6/10 by nighttime; uses lidocaine patches, Tylenol and ibuprofen for pain management - Adverse Effects: No adverse effects from pain medications reported - Activities of Daily Living: Pain worsens with activity, but no significant interference with daily activities and sleep reported - Aberrant Drug Related Behaviors: No aberrant behaviors reported Oswestry Low Back Pain Disability Score=11 [facility] Medical History (Updated 06/17/25 @ 11:18 by STEF Velazquez) History of CVA (cerebrovascular accident) History of tobacco use History of colonic polyps Chronic allergic rhinitis BPH (benign prostatic hyperplasia) Chronic GERD Diabetes mellitus Hyperlipidemia Hypertension Review of Systems Const Details: - Musculoskeletal: Reports lower back pain, denies radiation to lower extremities, denies numbness or tingling - Neurological: Denies numbness or tingling, reports memory issues and confusion - General: Denies fever, chills, cough, shortness of breaths, chest pain, or weight loss All systems reviewed & are unremarkable except as noted in HPI and below Physical Exam Vital Signs: Last Vital Signs Pulse 67 06/17/25 10:58 BP 124/69 06/17/25 10:58 Pulse Ox 97 06/17/25 10:58 Oxygen Delivery Method Room Air 06/17/25 10:58 BMI result Body Mass Index 23.3 General: Appears afebrile. No acute distress. Alert and oriented. Mood and affect appropriate. Follows and participates in conversation appropriately. Respiratory effort is unlabored. No cough. Able to transition from sit to stand unassisted. Ambulates with bilaterally normal heel strike and toe off. General: Yes no CVA tenderness Back/Spine/Pelvis Other: Limited lumbar ROM due to pain. Slightly antalgic gait, no limping. Lumbar extension and axial rotations reproduce moderate pain, flexion reproduces mild pain. Demonstrates 5/5 strength of quadriceps bilaterally as well as flexion/dorsiflexion of bilateral feet against resistance. 2+ pedal pulses bilaterally. Straight leg rise with dorsiflexion negative bilaterally. +1 patellar and diminished achilles reflexes bilaterally. Facet loading test positive bilaterally. Chito sign, Basil?s and Stinchfield tests are negative bilaterally. No groin pain with I/E hip rotations. Valsalva maneuver negative. Back: no CVA tenderness Cervical Spine: cervical ROM normal, cervical muscular tenderness and No Cervical spine tenderness Thoracic/Lumbar Spine: thoracic and lumbar spine normal to inspection, No Thoracic/lumbar spine scar(s), Lasegue's sign negative, straight leg raise negative bilaterally, No thoracic spinal tenderness and lumbar spinal tenderness at L3, at L4 and at L5 Results Reviewed Results Reviewed: XR LUMBOSACRAL SPINE 06/18/25 CLINICAL INFORMATION: LBP x 2 weeks COMPARISON: None available. TECHNIQUE: AP and lateral views. FINDINGS: Multilevel marginal osteophyte formation and endplate sclerosis in the axial skeleton. Incomplete ankylosis in the lower thoracic spine. No acute cortical disruption. No gross malalignment. No lytic or blastic lesions. Vascular clips in the right upper quadrant abdomen. Spina bifida occulta S1.. IMPRESSION: Multilevel thoracolumbar spondylosis. Questionable ankylosing spondylitis, lower thoracic spine. Status post cholecystectomy. Assessment & Plan Assessment & Plan (1) Lumbosacral spondylosis: Code(s): M47.817 - Spondylosis without myelopathy or radiculopathy, lumbosacral region Category: Medical (2) Acute on chronic low back pain: Code(s): M54.50 - Low back pain, unspecified; G89.29 - Other chronic pain Category: Medical (3) Lumbar degenerative disc disease: Code(s): M51.369 - Other intervertebral disc degeneration, lumbar region without mention of lumbar back pain or lower extremity pain Category: Medical Plan The plan for managing the patient's lumbar spondylosis involves considering radiofrequency ablation, which includes initial diagnostic injections to determine candidacy. We also discussed therapeutic injections and Sprint PNS trial, however given forgetfulness with memory issues, we will refrain from PNS therapy. The patient is advised to continue using lidocaine patches and Tylenol for pain management. Will send script for Naproxen. Physical therapy was discussed, but the patient declined participation due to pain exacerbation with movements. Schedule diagnostic bilateral L3-L4 DR L5 medial branch blocks with local and fluoroscopy. Expectations, risks and benefits were reviewed. Patient is aware he will be contacted to schedule this procedure. All questions and concerns have been answered and patient agreed with the treatment plan. Follow up after injections and sooner as needed. Patient was informed and verbally consented to the use of an ambient scribe for clinic note documentation during this visit. Medications: New naproxen 250 mg PO BID PRN 60 tabs 0RF pain 30 days G89.29 - Other chronic pain, M47.817 - Spondylosis without myelopathy or radiculopathy, lumbosacral region, M51.369 - Other intervertebral disc degeneration, lumbar region without mention of lumbar back pain or lower extremity pain, M54.50 - Low back pain, unspecified lidocaine 5% 1 patch topical DAILY 30 ea 3RF pain 30 days G89.29 - Other chronic pain, M47.817 - Spondylosis without myelopathy or radiculopathy, lumbosacral region, M51.369 - Other intervertebral disc degeneration, lumbar region without mention of lumbar back pain or lower extremity pain, M54.50 - Low back pain, unspecified Coding Level of Care Code New Pt Level 4 (04334) Diagnoses Lumbosacral spondylosis M47.817 Acute on chronic low back pain M54.50; G89.29 Lumbar degenerative disc disease M51.369
--- OUTSIDE RECORDS SUMMARY | 2025-06-17 10:56 | XMS_ITS | Encounter Summary ---
Author Organization [employer] Address [address] [facility] [address] [place] [address] Care Team Providers Care Asp Developer Name Role Phone Payton Streeter DO Primary Care Provider + [phone] Reason for Visit * Reason Comments Med Refill Encounter Details Date Type Department Care Team (Late st Contact Info) Description 05/04/2025 Refill [facility] [address] [place], [place] [phone] Payton Streeter DO [address] [place], [place] [phone] Social History Tobacco Use Types Packs/Day Years [...] documented as of this encounter Care Teams Asp Developer Relationship Specialty Start Date End Date Payton Streeter DO [address] [place] [id number] PCP - General Family Medicine 11/10/24 documented as of this encounter
--- OUTSIDE RECORDS SUMMARY | 2025-06-17 10:56 | XMS_ITS | Clinical Summary ---
Author Organization [facility] [address] [facility] Address [address] [place] [address] Phone Care Team Providers Care Art Appraiser Name Role Phone Unavailable Primary Care Provider Unavailabl e Allergies Active Allergy Reactions Criticality Noted Date Comments Iodinated Contrast Media 02/02/2018 Anxious, difficulty speaking Medications aspirin (ASPIR-81 ORAL) Take 1 Tab by mouth daily (with breakfast). Active blood-glucose meter (ONETOUCH VERIO METER MISC) Blood Glucose Monitoring Suppl (ONETOUCH VERIO) W/DEVICE Kit- 1 Device by Does not apply route See Admin Instructions. Check blood sugar once a day. Dx E11.9 9 Active diclofenac (VOLTAREN) 1 % topical gel Apply 4 g topically 5 times daily. 3 Active ceramides cream (CeraVe) cream moisturizing cream Apply twice a day to hands 0 Active fluticasone propionate (FLONASE) 50 mcg/actuation nasal spray 1 [place] by Each Nare route daily. 0 Active ibuprofen (ADVIL,MOTRIN) 600 mg tablet Take 1 Tab by mouth 3 times daily as needed for Pain. 0 Active mirabegron (Myrbetriq) 25 mg 24 hr tablet 2 Active [place]'s wort 300 mg capsule Take 1 capsule by mouth 1 (one) time each day. Active terbinafine (LamISIL) 1 % cream Apply 1 Units topically at bedtime. 8 Active lancets 33 gauge misc 1 Each by Does not apply route daily. Dx: E11.9 3 Active omeprazole (PriLOSEC) [address] capsule TAKE (1) CAPSULE BY MOUTH DAILY 30 capsule 5 Active cetirizine (ZyrTEC) 10 mg tablet TAKE 1 TABLET BY MOUTH DAILY. 30 tablet 5 Active amLODIPine (NORVASC) 5 mg tablet TAKE 1 TABLET BY MOUTH DAILY. 30 tablet 5 Active atorvastatin (LIPITOR) 10 mg tablet TAKE 1 TABLET BY MOUTH DAILY AT BEDTIME. 30 tablet 5 Active lisinopriL (PRINIVIL,ZESTRIL ) 2.5 mg tablet TAKE 1 TABLET BY MOUTH DAILY. 30 tablet 5 Active glipiZIDE (GLUCOTROL XL) 2.5 mg 24 hr tablet TAKE 1 TABLET BY MOUTH DAILY. 30 tablet 5 Active metFORMIN XR (GLUCOPHAGE-XR) 500 mg 24 hr tablet TAKE 1 TABLET BY MOUTH DAILY WITH BREAKFAST 30 tablet 5 Active tamsulosin (FLOMAX) 0.4 mg 24 hr capsule TAKE 1 CAPSULE BY MOUTH DAILY. TAKE 30 MINS AFTER SAME MEAL EVERY DAY. 30 capsule 5 Active fenofibrate (LOFIBRA) 160 mg tablet TAKE 1 TABLET BY MOUTH DAILY. 30 tablet 5 Active Active Problems Problem Noted Date Diagnosed Date Hydrocele, bilateral 09/05/2019 Overview (10/07/2024): [facility] 09/01/19 ZULEYMA (obstructive sleep apnea) 09/07/2018 Overview (10/07/2024): [facility] Home Polysomnogram: Date 09/02/2018; AHI 43, Unclassified apneas 44; Obstructive apneas 285; Central apneas 12; Mixed apneas 1; hypopneas 26; oxygen saturation data not recorded. [facility] Polysomnogram treatment study. Date 10/12/2018. SE 55 % SM 66 %; spent 28 % of the study in REM. On CPAP @ 16; RDI 5.1 (AHI 4.6), Central apneas 14; Obstructive apneas 0; Mixed apneas 0; hypopneas 3; RERAs 2; and, average oxygen saturation was 97%. For the entire study, PLMs ~6. - Obstructive Sleep Apnea - severe; mostly obstructive apneas; by 2017 home polysomnogram. - as of 10/19/2020 not using, too much air Choledocholithiasis with chronic cholecystitis 0 03/12/2018 Overview (10/07/2024): s/p lap cholecystectomy 10/02/2017 BPH (benign prostatic hyperplasia) 02/02/2018 Colon polyp 02/02/2018 Diabetes mellitus type 2, un complicated ([facility] V24, [facility] V28) 02/02/2018 Elevated PSA 02/02/2018 Overview (10/07/2024): PSA 4 in 2018 per uro note 12/2019; %free PSA 23 favoring benign etiol. He recommended d/cing PSA screening. Hyperlipidemia 02/02/2018 Hypertension 02/02/2018 Immunizations Name Administration Dates Next Due Influenza trivalent, 0.5mL ( Fluad) 65yo and older 10/17/2022,08/21/2021,07/17/2020,09/16 Influenza, Unspecified 11/10/2017 Pfizer Covid-19 Bivalent, Or iginal + Ba.1 (Non-US Trademark [employer] Bivalent) 10/08/2022 Hubs1 SARS-CoV-2 COVID-19, mRNA, LNP-S, preservative free 01/04/2021,12/14/2020 Pneumococcal conjugate 13 va lent (Prevnar 13, PCV13) 2mo and older 02/02/2018 Pneumococcal polysaccharide 23 valent (Pneumovax 23) 2yo and older 03/09/2019 Tdap Tetanus diptheria acell ular pertussis (Boostrix; Adacel) 7yo and older 02/02/2018 Surgical History Surgery Date Site/Laterality Comments CHOLECYSTECTOMY 10/02/2017 PROCEDURE: HISTORICAL CHOLECYSTECTOMY; COMMENT: lap jessica OTHER SURGICAL HISTORY 11/04/2019 Left PROCEDURE: WI EXC HYDROCELE SPRMATIC CORD UNI SPX; COMMENT: ANDERSON De La Fuente Medical History Medical History Date Comments Hypertension 02/02/2018 DX:Hypertension Diabetes mellitus type 2, un complicated ([facility] V24, [facility] V28) 02/02/2018 DX:Diabetes mellitus type 2 , uncomplicated (HCC) Hyperlipidemia 02/02/2018 DX:Hyperlipidemi a BPH [...] 04/13/2024 10:56 AM EDT Plan of Treatment Health Maintenance Due Date Last Done Comments Diabetes: Annual Retina Eye Exam 1950 Zoster Vaccines (1 of 2) 1991 RSV Immunization Adult Patients (1 - 1-dose 75+ series) 2016 Falls Risk Assessment 10/12/2022 Medicare Annual Wellness Visit 10/12/2022 Social Influencers of Health Screening 10/12/2022 COVID-19 Vaccine ( season) 2024 09/12/2021, 01/04/2021, 12/14/2020 Diabetes: Blood Sugar Control Test (HGBA1C) 09/09/2024 03/09/2024, 03/09/2024 Depression Screening 11/03/2024 Diabetes: Annual Urine Albumin-Creatinine Ratio (uACR) 03/09/2025 03/09/2024 Diabetes: Annual GFR (Glomerular Filtration Rate) 03/09/2025 03/09/2024, 03/09/2024 Hypertension/CHF/CAD Annual BMP Blood Test 03/09/2025 03/09/2024, 03/09/2024 Diabetes: Annual Foot Exam 04/13/2025 04/13/2024 Influenza Vaccine (#1) 2025 2, 08/21/2021, 07/17/2020, Additional history exists DTaP,Tdap,and Td Vaccines (2 - Td or [...] age to complete this topic Meningococcal B Vaccine Aged Out No l onger eligible based on patient's age to complete [...] Results * Diabetes Foot Exam (04/13/2024) Pathologist [facility] Diabetes: Annual Foot Exam abstracted Result [facility] Provider HEALTH MAINTENANCE Final Result * Urine Albumin Creatinine Ratio (03/09/2024) Pathologist [facility] Urine Albumin Creatinine Ratio abstracted Result [facility] HEALTH MAINTENANCE Final Result * Annual BMP Blood Test (03/09/2024) Pathologist [facility] Annual BMP Blood Test abstracted Result [facility] HEALTH MAINTENANCE Final Result * Hemoglobin A1c (03/09/2024) [facility] Hemoglobin A1C 5.8 <=6.5 % Blood Venous blood specimen / Unknown Result [facility] LAB BLOOD ORDERABLES Sandie l Result * (ABNORMAL) Lipid panel (03/09/2024) [facility] LDL/HDL Ratio 4 0 - 4 Triglycerides 174(A) 0 - 150 mg/dL Cholesterol 148 0 - 200 mg/dL HDL 39(A) >=40 mg/dL LDL Cholesterol 75 0 - 100 mg/dL Blood Venous blood specimen / Unknown Result [facility] LAB BLOOD ORDERABLES Sandie l Result from Last 3 Months or Most Recently Relevant to Health Maintenance Insurance [employer] MEDICARE [place]ICAID - [place]
[2025-06-17 10:58] VITALS: BP 124/69; PULSE 67; O2SAT 97; BMI 23.3
== END 2025-06-17 11:26 | disposition home or self-care (01) ==
LOC: HO.PMC 10:49
PROVIDERS: PCP Family Medicine; Referring Provider Family Medicine; Visit Provider Nurse Practitioner Family
DX: M47.817 Spondylosis without myelopathy or radiculopathy, lumbosacral region (principal); M54.50 Low back pain, unspecified; G89.29 Other chronic pain; M51.369 Other intervertebral disc degeneration, lumbar region without mention of lumbar back pain or lower extremity pain
CPT/HCPCS: 99204

== ENCOUNTER → 2025-06-17 10:49 | Outpatient (BNVA) | payer OTHER, SELFPAY | PROVIDERS: PCP Family Medicine; Referring Provider Family Medicine; Visit Provider Nurse Practitioner Family | DX: M47.817 Spondylosis without myelopathy or radiculopathy, lumbosacral region (principal); M54.50 Low back pain, unspecified; M51.369 Other intervertebral disc degeneration, lumbar region without mention of lumbar back pain or lower extremity pain; G89.29 Other chronic pain | CPT/HCPCS: 99202 ==

== ENCOUNTER 2025-07-13 11:47 | Outpatient (AMB) | payer OTHER, MEDICAID, SELFPAY ==
--- NOTE | 2025-07-13 11:54 | A.OFFVIS_ITS ---
Vital Signs 07/13/25 12:15 BP 155/67 H Intake Visit Reasons: 05/18LVM+Let ENP-Concern about memory Allergies Iodinated Contrast Media Adverse Reaction (Unknown, Verified 06/17/25 11:05) difficulty speaking Medication List - Last Reconciled 07/13/25 by Britni Segundo MD amlodipine 5 mg PO DAILY cetirizine 10 mg PO DAILY empagliflozin (Jardiance) 10 mg PO DAILY fenofibrate 160 mg PO DAILY finasteride 5 mg PO DAILY lidocaine 5% 1 patch topical DAILY 30 days lisinopril 2.5 mg PO DAILY mirabegron ER (Myrbetriq) 25 mg PO DAILY naproxen 250 mg PO BID PRN 30 days omeprazole 20 mg PO DAILY tamsulosin mg PO HPI Comments Details: The patient is an 84-year-old male presenting with memory concerns and related anxiety. He experiences altered perceptions of time in past memories but remains oriented and functional in daily activities, such as driving. The absence of a family history of dementia, alongside a normal CAT scan, suggests his memory impairments may be mild or age-related. Anxiety, primarily related to past events, is present, although it does not appear to be destabilizing. His history also includes well-controlled essential hypertension, hyperlipidemia, and Type 2 diabetes mellitus. [facility] Medical History (Updated 07/13/25 @ 12:15 by Britni Segundo MD) History of CVA (cerebrovascular accident) History of tobacco use History of colonic polyps Chronic allergic rhinitis BPH (benign prostatic hyperplasia) Chronic GERD Diabetes mellitus Hyperlipidemia Hypertension Review of Systems Const Details: - Neurological: Reports memory impairment; Denies issues with orientation or recall of current events. - Psychological: Reports anxiety related to past events. - Genitourinary: Denies problems with bladder control or urinary issues. - Musculoskeletal: Denies problems with walking or mobility. Physical Exam Neuro Other: Mental Status: Alert and oriented to person, place, and time. Normal attention. Normal spontaneous speech, fluency, and comprehension. Cranial Nerves: CN II: Visual tavarez full to confrontation, visual acuity intact. CN III, IV, : Pupils equal, round, reactive to light and accommodation. Extraocular movements are normal. CN V: Facial sensation is normal. CN VII: Facial movements symmetrical. CN VIII: Hearing intact to bedside conversation is normal. CN IX, X: Palate elevates symmetrically. CN XI: Shoulder shrug and head turn symmetrical. CN XII: Tongue midline without atrophy or fasciculations. Motor: Bulk and tone normal in all extremities. No significant muscle weakness in arms and legs. No drift. Reflexes: Deep tendon reflexes 2+ and symmetric. Plantar response down-going bilaterally. Coordination: [id number] and [id number] testing normal. No dysmetria. Gait and Station: No obvious gait abnormality. No ataxia or instability. Extrapyramidal: Full facial expressions and blinking. No rigidity. Movements are appropriate with no tremor or abnormality. Speech: Normal; no dysarthria or tremor. Assessment & Plan Assessment & Plan (1) Senile dementia: Comment: CT brain WO at [facility] in Dec 2024: Minimal atrophy Code(s): F03.90 - Unspecified dementia, unspecified severity, without behavioral disturbance, psychotic disturbance, mood disturbance, and anxiety Category: Medical Plan: We discussed the patient's age-related memory changes and reassured him that his symptoms align with what can be expected due to normal aging rather than dementia, supported by imaging results. For his anxiety, Lexapro was recommended to aid in symptom control, and we discussed the risks and benefits of this SSRI, emphasizing monitoring for any side effects. We agreed to maintain standard management for his chronic conditions?hypertension, hyperlipidemia, and diabetes?with reassurance about their current stability. We talked about follow- up in six months to evaluate the effectiveness of current interventions and any changes in symptoms. Plan Impression: 84 yo man with mild dementia with behavioral symptoms Rec: a: Escitaloprim 5mg a day Medications: New escitalopram oxalate 5 mg PO DAILY 90 tabs 0RF Coding Level of Care Code New Pt Level 5 (58919) Diagnoses Senile dementia F03.90
[2025-07-13 12:15] VITALS: BP 155/67
--- OUTSIDE RECORDS SUMMARY | 2025-07-13 15:00 | XMS_ITS | Clinical Summary ---
Author Organization [facility] [address] [facility] Address [address] [place] [address] Phone Care Team Providers Care Director Telemetry Name Role Phone Unavailable Primary Care Provider [...] propionate (FLONASE) 50 mcg/actuation nasal spray 1 [place] by Each Nare route daily. 0 Active ibuprofen (ADVIL,MOTRIN) 600 mg tablet Take 1 Tab by mouth 3 times daily as needed for Pain. 0 Active mirabegron (Myrbetriq) 25 mg 24 hr tablet 2 Active Vitaliy's wort 300 mg capsule Take 1 capsule [...] Diagnosed Date Hydrocele, bilateral 09/05/2019 Overview (10/07/2024): [facility] 09/01/19 ZULEYMA (obstructive sleep apnea) 09/07/2018 Overview (10/07/2024): [facility] Home Polysomnogram: Date 09/02/2018; AHI 43, Unclassified apneas 44; Obstructive apneas 285; Central apneas 12; Mixed apneas 1; hypopneas 26; oxygen saturation data not recorded. [facility] Polysomnogram treatment study. Date 10/12/2018. SE 55 [...] 02/02/2018 Diabetes mellitus type 2, un complicated ([facility] V24, [facility] V28) 02/02/2018 Elevated PSA 02/02/2018 Overview (10/07/2024): PSA 4 in 2018 per uro note 12/2019; %free PSA 23 favoring benign etiol. He recommended d/cing PSA screening. Hyperlipidemia 02/02/2018 Hypertension 02/02/2018 Immunizations Name Administration Dates Next Due Influenza trivalent, 0.5mL ( Fluad) 65yo and older 10/17/2022,08/21/2021,07/17/2020,09/16 Influenza, Unspecified 11/10/2017 Pfizer Covid-19 Bivalent, Or iginal + Ba.1 (Non-US Trademark [employer] Bivalent) 10/08/2022 Vuclip SARS-CoV-2 COVID-19, mRNA, LNP-S, preservative free 01/04/2021,12/14/2020 Pneumococcal conjugate 13 va lent (Prevnar 13, PCV13) 2mo and older 02/02/2018 Pneumococcal polysaccharide 23 valent (Pneumovax 23) 2yo and older 03/09/2019 Tdap Tetanus diptheria acell ular pertussis (Boostrix; Adacel) 7yo and older 02/02/2018 Surgical History Surgery Date Site/Laterality Comments CHOLECYSTECTOMY 10/02/2017 PROCEDURE: HISTORICAL CHOLECYSTECTOMY; COMMENT: lap jessica OTHER SURGICAL HISTORY 11/04/2019 Left PROCEDURE: NE EXC HYDROCELE SPRMATIC CORD UNI SPX; COMMENT: ANDERSON De La Fuente Medical History Medical History Date Comments Hypertension 02/02/2018 DX:Hypertension Diabetes mellitus type 2, un complicated (CMS/[facility] V24, [facility] V28) 02/02/2018 DX:Diabetes mellitus type 2 , [...] 10/12/2022 Social Influencers of Health Screening 10/12/2022 Diabetes: Blood Sugar Control Test (HGBA1C) 09/09/2024 03/09/2024, 03/09/2024 Depression Screening 11/03/2024 Diabetes: Annual Urine Albumin-Creatinine Ratio (uACR) 03/09/2025 03/09/2024 Diabetes: Annual GFR (Glomerular Filtration Rate) 03/09/2025 03/09/2024, 03/09/2024 Hypertension/CHF/CAD Annual BMP Blood Test 03/09/2025 03/09/2024, 03/09/2024 Diabetes: Annual Foot Exam 04/13/2025 04/13/2024 COVID-19 Vaccine ( season) 2025 09/12/2021, 01/04/2021, 12/14/2020 Influenza Vaccine (#1) 2025 , 08/21/2021, 07/17/2020, Additional history exists DTaP,Tdap,and Td [...] Results * Diabetes Foot Exam (04/13/2024) Pathologist [facility] Diabetes: Annual Foot Exam abstracted Result [facility] Provider HEALTH MAINTENANCE Final Result * Urine Albumin Creatinine Ratio (03/09/2024) Pathologist [facility] Urine Albumin Creatinine Ratio abstracted Result [facility] HEALTH MAINTENANCE Final Result * Annual BMP Blood Test (03/09/2024) Pathologist [facility] Annual BMP Blood Test abstracted Result [facility] HEALTH MAINTENANCE Final Result * Hemoglobin A1c (03/09/2024) [facility] Hemoglobin A1C 5.8 <=6.5 % Blood Venous blood specimen / Unknown Result [facility] LAB BLOOD ORDERABLES Sandie l Result * (ABNORMAL) Lipid panel (03/09/2024) [facility] LDL/HDL Ratio 4 0 - 4 Triglycerides 174(A) 0 - 150 mg/dL Cholesterol 148 0 - 200 mg/dL HDL 39(A) >=40 mg/dL LDL Cholesterol 75 0 - 100 mg/dL Blood Venous blood specimen / Unknown Result [facility] LAB BLOOD ORDERABLES Sandie l Result from Last 3 Months or Most Recently Relevant to Health Maintenance Insurance [employer] MEDICARE MEDICAID - [place]
--- OUTSIDE RECORDS SUMMARY | 2025-07-13 15:00 | XMS_ITS | Encounter Summary ---
Author Organization [employer] Address [address] [facility] [address] [place] [address] Care Team Providers Care Cloud Infrastructure Architect Name Role Phone Payton Streeter DO Primary Care Provider + [phone] Reason for Visit * Reason Comments Med Refill Encounter Details Date Type Department Care Team (Late st Contact Info) Description 05/04/2025 Refill [facility] MEDICINE [address] [place], [place] [phone] Payton Streeter DO [address] [place], [place] [phone] Social History Tobacco Use Types Packs/Day Years [...] as of this encounter Plan of Treatment Upcoming Encounters Date Type Department Care Team (Late st Contact Info) Description 09/12/2025 2:30 PM EST Immunization [facility] MED[facility]INE [address] [place] [address] documented as of this encounter Visit Diagnoses Not on filedocumented in this encounter Additional Health Concerns Assessment Noted Time PHQ-9 Depression Total Score: 3 11/10/19 10:22 AM EST documented as of this encounter Care Teams Cloud Infrastructure Architect Relationship Specialty Start Date End Date Payton Streeter DO [address] [place] [address] PCP - General Family Medicine 11/10/24 documented as of this encounter
--- OUTSIDE RECORDS SUMMARY | 2025-07-13 15:00 | XMS_ITS | Encounter Summary ---
Author Organization [employer] Address [address] [facility] [address] [place] [address] Care Team Providers Care Manager Financial Planning Name Role Phone Payton Streeter DO Primary Care Provider + [phone] Reason for Visit * Reason Comments Med Refill Encounter Details Date Type Department Care Team (Late st Contact Info) Description 05/27/2025 Refill [facility] MED[facility] [address] [place], [place] [phone] Payton Streeter DO [address] [place], [place] [phone] Social History Tobacco Use Types Packs/Day Years [...] Info) Description 09/12/2025 2:30 PM EST Immunization [facility] [address] [place] [address] documented as of this encounter Visit Diagnoses Not on filedocumented in this encounter Additional Health Concerns Assessment Noted Time PHQ-9 Depression Total Score: 3 11/10/19 10:22 AM EST documented as of this encounter Care Teams Manager Financial Planning Relationship Specialty Start Date End Date Payton Streeter DO [address] [place] [address] PCP - General Family Medicine 11/10/24 documented as of this encounter
--- OUTSIDE RECORDS SUMMARY | 2025-07-13 15:00 | XMS_ITS | Encounter Summary ---
Author Organization [employer] Address [address] [facility] [address] [place] [address] Care Team Providers Care Automotive Internet Sales Manager Name Role Phone Payton Streeter DO Primary Care Provider + [phone] Reason for Visit * Reason Comments Med Refill Encounter Details Date Type Department Care Team (Late st Contact Info) Description 05/11/2025 Refill [facility] MEDICINE [address] [place], [place] [phone] Payton Streeter DO [address] [place], [place] [phone] Social History Tobacco Use Types Packs/Day Years [...] Info) Description 09/12/2025 2:30 PM EST Immunization [facility] MEDICINE [address] [place] [address] documented as of this encounter Visit Diagnoses Not on filedocumented in this encounter Additional Health Concerns Assessment Noted Time PHQ-9 Depression Total Score: 3 11/10/19 10:22 AM EST documented as of this encounter Care Teams Automotive Internet Sales Manager Relationship Specialty Start Date End Date Payton Streeter DO [address] [place] [address] PCP - General Family Medicine 11/10/24 documented as of this encounter
--- OUTSIDE RECORDS SUMMARY | 2025-07-13 15:00 | XMS_ITS | Encounter Summary ---
Author Organization [employer] Address [address] [facility] [address] [place] [address] Care Team Providers Care Dinker Name Role Phone Payton Streeter DO Primary Care Provider + [phone] Reason for Visit * Reason Onset Date Comments Med Refill 05/18/2025 Encounter Details Date Type Department Care Team ([facility] st Contact Info) Description 05/18/2025 Telephone [facility] MED[facility]INE [address] [place], [place] [phone] Payton Streeter DO [address] [place], [place] [phone] Med Refill Social History Tobacco Use Types Packs/Day Years [...] Telephone Encounter - Payton Das LPN - 05/18/2025 2:19 PM EDT Medications prescribed by PCP pended. * Telephone Encounter - Silvina Morin - 05/18/2025 2:06 PM EDT TC from pt requesting medication refill. Medications needing refill : - atorvastatin (Lipitor) 10 MG tablet - metFORMIN ER (Glucophage-XR) 500 MG 24 hr tablet - amLODIPine (Norvasc) 5 MG tablet - cetirizine (ZyrTEC) 10 MG tablet - lisinopril 2.5 MG tablet - Alcohol Swabs 70 % pads To be sent to: - [facility] [address] [place] [address] - [address] [facility] documented in this encounter Plan of Treatment Upcoming Encounters Date Type Department Care Team (Late st Contact Info) Description 09/12/2025 2:30 PM EST Immunization [facility] MED[facility]INE [address] [place] [address] documented as of this encounter Visit Diagnoses Not on filedocumented in this encounter Additional Health Concerns Assessment Noted Time PHQ-9 Depression Total Score: 3 11/10/19 25 10:22 AM EST documented as of this encounter Care Teams Dinker Relationship Specialty Start Date End Date Payton Streeter DO [address] [place] [id number] PCP - General Family Medicine 11/10/24 documented as of this encounter
--- OUTSIDE RECORDS SUMMARY | 2025-07-13 15:00 | XMS_ITS | Clinical Summary ---
Author Organization [employer] Address [address] [place] [address] Care Team Providers Care Bottle Caser Name Role Phone Payton Streeter DO Primary Care Provider Allergies Active Allergy Reactions Criticality Noted Date Comments Iodinated Contrast Media 02/02/2018 Anxious, difficulty speaking Medications tamsulosin (Flomax) 0.4 MG 24 hr capsule Take 0.4 mg by mouth Once per day. Active Myrbetriq 25 MG 24 hr tablet Take 25 mg by mouth Once per day. 025 Active metFORMIN XR (Glucophage-XR) 500 MG 24 hr tablet Take 500 mg by mouth with evening meal. 024 Active finasteride (Proscar) 5 MG tablet Take 5 mg by mouth Once per day. 025 Active glipiZIDE XL (Glucotrol XL) 2.5 MG 24 hr tablet Take 1 tablet (2.5 mg) by mouth Once per day. 30 tablet 5 025 Active glucose blood (OneTouch Ultra) test strip Use to test blood sugar 1 times daily 100 each 12 025 2025 Active Blood Glucose Monitoring Suppl (ONE TOUCH ULTRA 2) w/Device kit Use to test blood sugar 1 times daily 1 kit Active Lancets 33G misc Check BS once daily 100 each Active empagliflozin (Jardiance) 10 MG Take 1 tablet (10 mg) by mouth Once per day. 30 tablet 3 025 2025 Active Diclofenac Sodium 1 % gel Apply 2 g topically if needed in the morning, at noon, in the evening, and at bedtime (pain). 150 g 3 Active fluticasone (Flonase) 50 MCG/ACT nasal spray Administer 2 sprays into each nostril Once per day. Shake gently. Before first use, prime pump. After use, clean tip and replace cap. 16 g 3 025 2025 Active amLODIPine (Norvasc) 5 MG tablet TAKE 1 TABLET BY MOUTH ONCE DAILY 30 tablet 3 Active lisinopril 2.5 MG tablet TAKE 1 TABLET BY MOUTH EVERY DAY 30 tablet 3 Active cetirizine (ZyrTEC) 10 MG tablet TAKE 1 TABLET BY MOUTH EVERY DAY 30 tablet 3 Active Alcohol Swabs 70 % pads USE TO TEST BLOOD SUGAR ONCE A DAY 100 each 3 Active omeprazole (PriLOSEC) [address] capsule TAKE (1) CAPSULE BY MOUTH DAILY BEFORE BREAKFAST 30 capsule 3 Active fenofibrate (Triglide) 160 MG tablet TAKE 1 TABLET BY MOUTH ONCE DAILY 30 tablet 3 Active Blood Glucose Monitoring Suppl (Contour Plus Blue) w/Device kit 1 Units Once per day. Use to check BS once daily 1 kit Active glucose blood (Contour Plus Test) test strip Use to test blood sugar 1 time daily 100 each 12 025 2025 Active atorvastatin (Lipitor) 10 MG tabletIndications :Moderate mixed hyperlipidemia not requiring statin therapy Take 1 tablet (10 mg) by mouth Once per day. 90 tablet 3 Active atorvastatin (Lipitor) 10 MG tablet Take 10 mg by mouth Once per day. 025 2024 Discontinued(R eorder (will not trigger notification to Pharmacy)) Active Problems Problem Noted Date Diagnosed Date BPH (benign prostatic hyperplasia) 11/10/2024 Chronic allergic rhinitis 11/10/2024 History of colonic polyps 11/10/2024 BMI 27.0-27.9,adult 11/10/2024 History of tobacco use 11/10/2024 History of CVA (cerebrovascular accident) 2024 Essential hypertension 11/09/2024 Hyperlipidemia 11/09/2024 Type 2 diabetes mellitus 11/09/2024 Chronic gastroesophageal reflux disease 11/09/19 25 Encounters Date Type Department Care Team Description 06/15/2025 Refill [facility] [address] [place] [address] Payton Streeter, Moderate mixed hyperlipidemia not requiring statin therapy 06/13/2025 Refill [facility] [address] [place] [address] Payton Streeter, 06/03/2025 Refill [facility] [address] [place] [address] Payton Streeter, 06/01/2025 Orders Only [facility] [address] [address] Payton Streeter, DO Acute bilateral low back pain without sciatica (Primary Dx) 05/27/2025 Refill [facility] [address] [place] [address] Payton Streeter, 05/23/2025 10:00 AM EDT Clinical Support [facility] [address] [place] [address] Nkechi Austin, RN Encounter for immunization 05/23/2025 Travel 05/18/2025 Telephone [facility] [address] [place] [address] Payton Streeter, Med Refill 05/18/2025 Refill [facility] [address] [address] Payton Streeter, 05/11/2025 Refill [facility] [address] [address] Payton Streeter, 05/10/2025 Telephone [facility] [address] [place] [address] Payton Streeter, Results 05/05/2025 10:00 AM EDT Clinical Support [facility] [place] [address] Nkechi Austin, [place] 05/05/2025 Travel 05/04/2025 Refill [facility] [address] [place] [address] Payton Streeter, 04/25/[address] [address] Payton Streeter DO 04/20/2025 10:00 AM EDT Office Visit [address] [address] Payton Streeter DO Type 2 diabetes mellitus without complication, without long-term current use of insulin ([facility]) (Primary Dx); Essential hypertension; Other hyperlipidemia; Chronic gastroesophageal reflux disease; Chronic allergic rhinitis; Benign prostatic hyperplasia, unspecified whether lower urinary tract symptoms present; History of tobacco use; Concern about memory; History of colonic polyps; Acute bilateral low back pain without sciatica; Healthcare maintenance; Encounter for immunization 04/20/2025 Travel 04/19/[address] [address] Payton Streeter DO 04/19/[address] [address] Payton Streeter DO Chart prep 04/12/2025 Patient Outreach [address] [address] Payton Streeter DO Pre-visit Planning ([facility] screening completed on 11/10/2024) from Last 3 Months Immunizations Immunization Administration Dates Next Due Hep B, adult 05/23/2025,04/20/2025 Influenza, IIV3, injectable 10/17/2022,1 ,07/17/2020,09/06/20 19,11/10/2017 Pfizer Covid-19 Vaccine 12+ 11/10/2024,0 04/21/2024,10/08/2022,09/12/20 21,01/04/2021,12/14/2020 Pneumococcal Conjugate PCV 13 02/02/2018 Pneumococcal Polysaccharide PPSV23 03/09/2019 RSV Bivalent 07/11/2025 Tdap 02/02/2018 Zoster, Recombinant 07/11/2025 Family History Medical History Relation Name Comments [...] Sign Reading Time Taken Comments Blood Pressure 138/66 04/20/2025 12:52 PM EDT Pulse 72 04/20/2025 10:04 AM EDT Temperature 36.6 C (97.8 F) 04/20/2025 10:04 AM EDT Respiratory Rate 16 04/20/2025 10:04 AM EDT Oxygen Saturation - - Inhaled Oxygen Concentration - - Weight 67.1 kg (148 lb) 04/20/2025 10:04 AM EDT Height 152.4 cm (5') 04/20/2025 10:04 AM EDT Body Mass Index 28.9 04/20/2025 10:04 AM EDT Plan of Treatment Upcoming Encounters Date Type Department Care Team (Late st Contact Info) Description 09/12/2025 2:30 PM EST Immunization [facility] [address] [place] [address] Health Maintenance Due Date Last Done Comments Diabetes: Foot Exam 1950 Eye Exam 1950 Diabetes: Hemoglobin A1C 05/11/2025 025, 11/10/2024, 03/09/2024 COVID-19 Vaccine ( season) 2025 11/10/2024, 04/21/2024, 10/08/2022, Additional history exists Influenza Vaccine (#1) 2025 , 08/21/2021, 07/17/2020, Additional history exists Zoster Vaccines (2 of 2) 09/05/2025 07/11/2025 Hepatitis B Vaccines (3 of 3 - 19+ 3-dose series) 10/20/2025 05/23/2025, 04/20/2025 Alcohol/Substance Use Screening 11/10/2025 11/10/2024 Depression Screening 11/10/2025 11/10/2024, 11/10/19 25 SDOH Screening 11/10/2025 11/10/2024 Diabetes: Urine Protein Screening 11/11/2025 11/11/2024 Lipid Panel 11/11/2025 11/11/2024 Tobacco Screening 04/01/2026 04/01/2025 DTaP/Tdap/Td Vaccines (2 - Td or Tdap) 02/03/2028 02/02/2018 Pneumococcal Vaccine: 50+ Years Completed 03/09/2019, 02/02/2018 RSV Patients and Patients Aged 60 years or older Completed 07/11/2025 HIB Vaccines Aged Out No longer eligi [...] Procedure Name Priority Date/Time Associated Diagnosis Comments XR LUMBAR SPINE 2-3 VIEWS Routine 04/20/2025 10:50 AM EDT Acute bilateral low back pain without sciatica POCT GLUCOSE Routine 04/20/2025 10:05 AM EDT Type 2 diabetes mellitus without complication, without long-term current use of insulin ([facility]) ALBUMIN, RANDOM URINE W/CREATININE Routine 11/11/2024 8:10 [...] Concern about memory Healthcare maintenance BMI 27.0-27.9,adult from Last 3 Months or Most Recently Relevant to Health Maintenance Results * XR Lumbar Spine 2-3 Views (04/20/2025 10:50 AM EDT) Anatomical Region Laterality Modality Spine, L-spine Radiographic Jacinta ging 04/20/2025 10:5 0 AM EDT Narrative 04/20/2025 12:11 PM EDT [address] [address] XRay Report Signed Patient: Ace Easley MR#: [id number] : 1940 Acct:[id number] Age/Sex: 84 / M ADM Date: 04/20/25 Loc: .HHCX Attending Dr: Payton Streeter DO Ordering Physician: Payton Streeter DO Date of Service: 04/20/25 Procedure(s): XR lumbar spine 2-3V Accession Number(s): [id number] cc: Payton Streeter DO EXAMINATION: XR LUMBOSACRAL SPINE CLINICAL INFORMATION: LBP x 2 weeks COMPARISON: None available. TECHNIQUE: AP and lateral views. FINDINGS: Multilevel marginal osteophyte formation and endplate sclerosis in the axial skeleton. Incomplete ankylosis in the lower thoracic spine. No acute cortical disruption. No gross malalignment. No lytic or blastic lesions. Vascular clips in the right upper quadrant abdomen. Spina bifida occulta S1.. 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 Status post cholecystectomy. Electronically signed by: Donavon Marquez MD 04/20/2025 12:09 PM EDT Dictated By: Donavon Kitchen MD Signed By: <Electronically signed by Donavon Anderson MD in OV> 04/20/25 1209 DD/ 1050 TD/TT: 04/20/25 1143 Agricultural Pilot: Procedure Note Donotuseinterpreter, Image - 04/20/[address] [address] XRay Report Signed Patient: Nan EasleylMR#: [id number] : 1940cct:[id number] Age/Sex: 84 / MADM Date: 04/20/25 Loc: HO.HHCX Attending Dr: Payton Streeter DO Ordering Physician: Payton Streeter DO Date of Service: 04/20/25 Procedure(s): XR lumbar spine 2-3V Accession Number(s): [id number] cc: Payton Streeter DO EXAMINATION: XR LUMBOSACRAL SPINE CLINICAL INFORMATION: LBP x 2 weeks COMPARISON: None available. TECHNIQUE: AP and lateral views. FINDINGS: Multilevel marginal osteophyte formation and endplate sclerosis in the axial skeleton. Incomplete ankylosis in the lower thoracic spine. No acute cortical disruption. No gross malalignment. No lytic or blastic lesions. Vascular clips in the right upper quadrant abdomen. Spina bifida occulta S1.. 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 Status post cholecystectomy. Electronically signed by: Donavon Marquez MD 04/20/2025 12:09 PM EDT RP Dictated By: Donavon Kitchen MD Signed By: <Electronically signed by Donavon Anderson MDin OV> 04/20/25 1209 DD/ 1050 TD/TT: 04/20/25 1143 Agricultural Pilot: Payton Streeter DO IMG XR PROCEDURES Final Resu lt * (ABNORMAL) POCT Glucose (04/20/2025 10:05 AM EDT) Glucose Blood, POC 350(A) 60 - 200 mg/dL Blood Capillary blood specimen / Unknown 04/20/2025 10:05 AM EDT Payton Streeter DO POINT OF CARE TEST ENTER/KYLER T ORDERABLES Final Result * Albumin, Random Urine W/Creatinine (11/11/2024 8:10 AM EST) Creatinine, Urine 215.97 mg/dL [facility] Microalbumin Urine 20.0 mg/L [facility] Microalbum Creatinine Ratio Ur 9.2 <30 ug/mg cr [facility] Comment:Albumin/Creatinine R atio Reference Ranges: Normal: < 30 ug/mg creatinine Microalbuminuria: 30 - 300 ug/mg creatinineClinical Albuminuria: > 300 ug/mg creatinine Urine (Urine, Random) 11/11/2024 8:10 AM EST 11/11/2024 11:23 AM EST Payton Streeter DO LAB URINE ORDERABLES Final R esult Performing Organization Address City/[facility]/ZIP Co de Phone Number [facility] [address] [place] [phone] * (ABNORMAL) Hemoglobin A1c (11/11/2024 8:10 AM EST) Hemoglobin A1c 6.1(H) <6.0 % [facility] Comment:Hemoglobin A1C Refer ence Range Adults: 4.8 - 6.0 % Non diabetic: < 6.0 % Goal: < 7.0 %Additional Action Suggested: > 8.0 %Note: Hemoglobin A1c results are invalid for patients with abnormal amounts of HbF. Blood transfusions may impact the HbA1c concentration in the patient sample. Estimated Average Glucose 128 mg/dL [facility] Comment:eAG = Estimated ave rage glucose which is %A1C expressed asaverage glucose, using the formula of the I1W-RvnmygqAkypzei Glucose study (ADAG), Diabetes Care, Vol.31,#8,Jun. 2007 Blood Venous blood specimen / Unknown 11/11/2024 8:10 AM EST 11/11/2024 11:28 AM EST Payton Streeter DO LAB BLOOD ORDERABLES Final R esult Performing Organization Address [facility]/ZIP Co de Phone Number [facility] [address] [place] [phone] * Lipid Panel, Standard (11/11/2024 8:10 AM EST) Triglycerides 76 <150 mg/dL [facility] Comment:Desirable Triglyceri de: less than 150 mg/dLBorderline High Triglyceride 150-199 mg/dLHigh Triglyceride: 200-499 mg/dLVery High Triglyceride: greater than or equal to 5OO mg/dL Cholesterol 150 <200 mg/dL [facility] Comment:Desirable Cholestero l: less than 200 mg/dLBorderline High Cholesterol: 200-239 mg/dLHigh Cholesterol: greater than 239 mg/dL LDL Cholesterol Calculated 90 <100 mg/dL [facility] Comment:Desirable LDL: less than 100 mg/dLNear Optimal/Above Optimal LDL: 110- 129 mg/dLBorderline High LDL: 130-159 mg/dLHigh LDL: 160-189 mg/dLVery High LDL: greater than or equal to 190 mg/dL HDL Cholesterol 45 >40 mg/dL [facility] Comment:Desirable HDL: great er than 40 mg/dL Note: This HDL assay may give artificially low results in patients with liver disease. Blood Venous blood specimen / Unknown 11/11/2024 8:10 AM EST 11/11/2024 11:28 AM EST Payton Streeter DO LAB BLOOD ORDERABLES Final R esult [facility] [address] [place] [phone] from Last 3 Months or Most Recently Relevant to Health Maintenance Insurance [facility] [employer] [place] [employer] Care Teams Bottle Caser Relationship Specialty Start Date End Date Payton Streeter DO [address] [place] [phone] PCP - General Family Medicine 11/10/24
== END 2025-07-13 12:18 | disposition home or self-care (01) ==
LOC: HO.HSM 11:47
PROVIDERS: PCP Family Medicine; Visit Provider Psychiatry & Neurology Neurology
DX: F03.A18 Unspecified dementia, mild, with other behavioral disturbance (principal)
CPT/HCPCS: 99205

== ENCOUNTER → 2025-07-13 11:47 | Outpatient (BNVA) | payer OTHER, SELFPAY | PROVIDERS: PCP Family Medicine; Visit Provider Psychiatry & Neurology Neurology | DX: F03.90 Unspecified dementia, unspecified severity, without behavioral disturbance, psychotic disturbance, mood disturbance, and anxiety (principal); F41.9 Anxiety disorder, unspecified; E11.9 Type 2 diabetes mellitus without complications; I10 Essential (primary) hypertension | CPT/HCPCS: 99202 ==

== ENCOUNTER 2025-07-22 09:39 | Day surgery (SDC) | payer OTHER, SELFPAY ==
[2025-07-20 12:46] VITALS: BMI 23.3
--- NOTE | 2025-07-20 13:09 | HO.ANESPROP2 ---
HPI - Anesthesia Eval Consult details Narrative: 84yo M for Bilateral Diagnostic L3,L4,DR L5 Medial Branch Block Anesthesia Pre-Procedure Meds Is the patient on any of the following meds?: SGLT2 Inhib PMFSH Active Problems Active Problems: All Active Problems Senile dementia (Acute) Lumbar degenerative disc disease (Acute) Acute on chronic low back pain (Acute) Lumbosacral spondylosis (Acute) Past Medical History Medical History (Updated 07/13/25 @ 12:15 by Britni Segundo MD) History of CVA (cerebrovascular accident) History of tobacco use History of colonic polyps Chronic allergic rhinitis BPH (benign prostatic hyperplasia) Chronic GERD Diabetes mellitus Hyperlipidemia Hypertension Meds Allergies Allergy/AdvReac Type Severity Reaction Status Date / Time Iodinated Contrast Media AdvReac Unknown difficulty Verified 06/17/25 11:05 speaking Home Medications ?Medication ?Instructions ?Recorded ?Confirmed ?Last Taken ?Type amlodipine 5 mg tablet 5 mg PO DAILY 06/17/25 07/13/25 Unknown History cetirizine 10 mg tablet 10 mg PO DAILY 06/17/25 07/13/25 Unknown History empagliflozin 10 mg tablet 10 mg PO DAILY 06/17/25 07/13/25 Unknown History (Jardiance) fenofibrate 160 mg tablet 160 mg PO DAILY 06/17/25 07/13/25 Unknown History finasteride 5 mg tablet 5 mg PO DAILY 06/17/25 07/13/25 Unknown History lisinopril 2.5 mg tablet 2.5 mg PO DAILY 06/17/25 07/13/25 Unknown History mirabegron 25 mg tablet,extended 25 mg PO DAILY 06/17/25 07/13/25 Unknown History release 24 hr (Myrbetriq) omeprazole 20 mg capsule,delayed 20 mg PO DAILY 06/17/25 07/13/25 Unknown History release tamsulosin 0.4 mg capsule mg PO 06/17/25 07/13/25 Unknown History Exam Height,Weight and Vital Signs: Height 5 ft 5 in Weight 63.503 kg Pertinent Lab Results Pertinent Lab Results: Laboratory Tests 11/11/24 08:10 WBC 6.8 Hgb 13.5 L Hct 40.9 L Plt Count 164 Sodium 143 Potassium 3.9 Chloride 110 H Carbon Dioxide 27 BUN 19 H Creatinine 1.07 Assessment and Plan Assessment Anesthesia Assessment: Chart Reviewed
--- NOTE | ~2025-07-22 | FL_ITS ---
EXAMINATION: FL GUIDANCE ONLY HISTORY: DX L3 L4 DR L5 medial branch block, bilateral COMPARISON: None available. TECHNIQUE: Fluoroscopy time: 42.8 seconds. Cumulative Dose: 7.7484 mGy. DAP: 3.3705 mGym2 Images: 12. FINDINGS: Fluoroscopic spot films of the lumbar spine demonstrate needles and contrast material in the regions of the bilateral L3-4, L4-5, and L5-S1 facet joints. FL/FL guidance in OR IMPRESSION: Fluoroscopy during procedure. Please see procedure report for additional information. Electronically signed by: Isiah Zuniga MD 07/22/2025 11:37 AM EDT
[2025-07-22 10:10] VITALS: BP 152/76; PULSE 68; RESP 16; TEMP 36.8; O2SAT 98
--- NOTE | 2025-07-22 10:44 | MHC.SHP ---
Pre-Procedural Eval Section A - 24 Hr Update-Section A only Date of Service: 07/22/25 The patient is an INPATIENT: No Changes since office visit: Yes Patient answered all questions The patient has been examined within 24 hours of the surgical procedure. The History & Physical has been completed within 30 days and I have reviewed it.: No Section B - Complete if H&P > 30 days Chief Complaint: Spondylosis without myelopathy or radiculopathy, Details of Present Illness: As above Relevant Family History (Specify if Yes): No Relevant Social History: None Present Medications: see Short Stay Collaborative assessment Medical History: No relevant PMH History of Previous Operations: No relevant previous surgery Allergies: Allergies Allergy/AdvReac Type Severity Reaction Status Date / Time Iodinated Contrast Media AdvReac Unknown difficulty Verified 06/17/25 11:05 speaking Review of Systems Sugical H&P ROS: Negative: Constitution, Cardiovascular, Respiratory, Neurological, Hem-Onc, Allergic/Immunologic, Gastrointestinal, Genitourinary, Integumentary, Endocrine and Eyes/Ears/Nose/Throat and Yes, Specify: Psychiatric (Senile dementia) and Musculoskeletal (Spondylosis lumbar and lumbosacral) Exam Surgical H&P Exam: Normal: HEENT, Normal: Heart, Normal: Lungs, Normal: Extremities, Normal: Abdomen, Normal: Skin and Normal: Neurological Plan Diagnosis/Plan: Unchanged I have reviewed the history and physical and performed a pertinent physical examination on my patient. No changes have occurred unless specified. Time Spent With Patient Time: Total time managing care of this patient today ____ minutes.
[2025-07-22 11:15] VITALS: BP 137/72; PULSE 60; RESP 14; TEMP 36.3; O2SAT 99
--- NOTE | 2025-07-22 11:15 | P.BOP_ITS ---
Brief Operative Note Date of Service: 07/22/25 Pre-op diagnosis: Spondylosis lumbar without myelopathy or radiculopathy Post-op diagnosis: same Procedure: Diagnostic Medial branch block bilateral L3, L4, dorsal ramus L5. Surgeon: Von Villatoro MD Anesthesia: local Was an Hardwood Floor Finisher used for this Procedure?: No Estimated blood loss (mL): 0 Condition: stable Disposition: PACU
--- NOTE | 2025-07-28 08:05 | W.PM.OPN ---
Operative Note Operative Note Date of Service: 07/28/25 Narrative: Diagnostic medial branch block L3,L4 dorsal ramus L5 bilateral.? ? ?Informed consent was explained to the patient. All questions were explained and? answered.? The patient was taken inside the operating room where he was positioned prone on the operating table. ASA monitors were applied and patient was moderately sedated. Time-out was performed delineating correct site, side, the nature of the procedure, patient's allergy, . All operating room staff was participating in OR time-out procedure. ? ? The lower back was prepped with ChloraPrep and draped with sterile utility towels.? C-arm was brought over the operating field and sq picture of L4-, L5 vertebra and S1 AREA were delineated on the screen.? Point of interest were delineated as confluence of superior articular process of L4 and L5 vertebra bilaterally with corresponding transverse processes as well as confluence of the sacral alae bilaterally with superior articular process of S1.? The projection of the point of interest to the skin were injected with the small amount of local anesthetic lidocaine 2% mixed with ropivacaine 0.5% 1-1 approximately 1 cc.? After that 22 gauge 3.5 inch spinal needle was driven sequentially to the points of interest in tunnel vision fashion. After needles gently contacted the bone at the point of interests the needle was injected with small amount of the contrast.? The injection of the contrast did not demonstrate any intravascular or intrathecal spread of the contrast.? After that injection of the? ropivacaine 0.5%-1cc was performed at each needle location.?After that the needles were removed and Bandaids were applied.
== END 2025-07-22 12:00 | disposition home or self-care (01) ==
PROVIDERS: PCP Family Medicine; Visit Provider Anesthesiology
PROC: (CPT 64493; principal; 2025-07-22 11:30)
DX: M47.817 Spondylosis without myelopathy or radiculopathy, lumbosacral region (principal); M51.369 Other intervertebral disc degeneration, lumbar region without mention of lumbar back pain or lower extremity pain; G89.29 Other chronic pain; M54.50 Low back pain, unspecified; E11.9 Type 2 diabetes mellitus without complications; I10 Essential (primary) hypertension; E78.5 Hyperlipidemia, unspecified; K21.9 Gastro-esophageal reflux disease without esophagitis; J30.9 Allergic rhinitis, unspecified; Z86.73 Personal history of transient ischemic attack (TIA), and cerebral infarction without residual deficits; N40.0 Benign prostatic hyperplasia without lower urinary tract symptoms; Z79.84 Long term (current) use of oral hypoglycemic drugs; Z79.899 Other long term (current) drug therapy; Z87.891 Personal history of nicotine dependence; Z91.040 Latex allergy status
CPT/HCPCS: 64493; 64494; A9585; J2003; J2795; Q9967

== ENCOUNTER → 2025-07-22 09:39 | Outpatient (BNV) | payer OTHER, SELFPAY | PROVIDERS: PCP Family Medicine; Visit Provider Anesthesiology | DX: M47.816 Spondylosis without myelopathy or radiculopathy, lumbar region (principal) | CPT/HCPCS: 64493; 64494 ==

== ENCOUNTER 2025-07-26 10:44 | Outpatient (AMB) | payer OTHER, SELFPAY ==
--- NOTE | 2025-07-26 10:48 | A.OFFVIS_ITS ---
Vital Signs 07/26/25 10:51 Height 5 ft 5 in Weight 140 lb BMI 23.3 BP 138/63 Blood Pressure Location Lt brachial Position Sitting Pulse 61 Pulse Source Pulse Oximeter Pulse Oximetry (%) 97 Oxygen Delivery Method Room Air Intake Visit Reasons: S/p B/l Dx L3-L4-DR L5 MBB 07/22/25 Intake Note: Pain today 0/10 Director Medical Science Required: Yes Director Medical Science Language: Spr[employer] Machine Loader Services: Director Medical Science Offered & Declined Director Medical Science Name: Daughter Adry Allergies Iodinated Contrast Media Adverse Reaction (Unknown, Verified 07/26/25 10:53) difficulty speaking HPI Comments Details: The patient is an 84-year-old male presenting with lumbar back pain. He underwent bilateral diagnostic lumbar medial branch blocks on July 22, which provided complete pain relief with significant improvement in his mob ility, daily functioning, better sleep and increased social activities per family. Since the injections, the patient reports no pain and is interested to pursue lumbar medial branch radiofrequency ablation for longer-term pain relief once pain returns to baseline levels. Denies any recent cough, cold, infection, fever or any significant changes in medical history since last office visit. Past Procedures: 07/22/25: Bilateral Diagnostic L3-L4 DR L5 MBB--100% ongoing pain relief >3 days PRIOR: The patient is an 84-year-old male presenting with acute and chronic low back pain. The back pain has been present for approximately four weeks, with a history of lumbar spondylosis confirmed by imaging. The pain is described as non-radiating and does not involve numbness or tingling in the lower extremities. The patient has a history of hypertension, type 2 diabetes mellitus with recent A1C=6.1. He also has a history of CVA and is currently experiencing memory issues and confusion, for which he has been referred to Neurology. He has been using lidocaine patches, Tylenol and rarely Ibuprofen for pain management with temporary relief. Patient does not really have significant pain when sitting or resting, but pain increases as the day goes on and worse by bedtime if he sleeps on his back. The patient has not undergone any back surgery or injections previously and does not use any assistive devices for walking. He reports no significant pain when bending forward and maintains stability while walking. His imaging shows multilevel thoracolumbar arthritis and possible ankylosing spondylitis, with multilevel bone spurs noted. - Onset: Acute on chronic, present for 4 weeks - Quality: Aching, sharp and pressure-like, worsens at bedtime - Location: Lower back, non-radiating - Exacerbating factors: Activity, lifting heavy objects, prolonged standing or walking, upright positions, - Relieving factors: Rest, use of lidocaine patches, Tylenol, Ibuprofen (rarely for severe pain) - Affect: No specific impact on mood or psychological wellbeing discussed - Analgesia: Current pain level reported as 3/10, increasing to 5-6/10 by nighttime; uses lidocaine patches, Tylenol and ibuprofen for pain management - Adverse Effects: No adverse effects from pain medications reported - Activities of Daily Living: Pain worsens with activity, but no significant interference with daily activities and sleep reported - Aberrant Drug Related Behaviors: No aberrant behaviors reported Oswestry Low Back Pain Disability Score=11 [facility] Medical History History of CVA (cerebrovascular accident) History of tobacco use History of colonic polyps Chronic allergic rhinitis BPH (benign prostatic hyperplasia) Chronic GERD Diabetes mellitus Hyperlipidemia Hypertension Social History Are you a primary physician primary care sports medicine to a significant other at home: No Do you presently have visiting nurse or other home services: No Comment: last fall 3 years ago. Patient Tobacco Use Status: Former Tobacco user Second Hand Smoke Exposure: No Review of Systems Const All systems reviewed & are unremarkable except as noted in HPI and below Physical Exam Vital Signs: Last Vital Signs Pulse 61 07/26/25 10:51 BP 138/63 07/26/25 10:51 Pulse Ox 97 07/26/25 10:51 Oxygen Delivery Method Room Air 07/26/25 10:51 BMI result Body Mass Index 23.3 General: Appears afebrile. No acute distress. Alert and oriented. Mood and affect appropriate. Follows and participates in conversation appropriately. Respiratory effort is unlabored. No cough. Able to transition from sit to stand unassisted. Ambulates with bilaterally normal heel strike and toe off. General: Yes no CVA tenderness Back/Spine/Pelvis Other: Slightly antalgic gait, no limping. Lumbar extension and axial rotations reproduce very minimal discomfort, flexion reproduces mild pain. Demonstrates 5/5 strength of quadriceps bilaterally as well as flexion/dorsiflexion of bilateral feet against resistance. 2+ pedal pulses bilaterally. Straight leg rise with dorsiflexion negative bilaterally. +1 patellar and diminished achilles reflexes bilaterally. Facet loading test positive bilaterally. Chito sign, Basil?s and Stinchfield tests are negative bilaterally. No groin pain with I/E hip rotations. Valsalva maneuver negative. Back: no CVA tenderness Cervical Spine: cervical ROM normal, cervical muscular tenderness and No Cervical spine tenderness Thoracic/Lumbar Spine: thoracic and lumbar spine normal to inspection, No Thoracic/lumbar spine scar(s), Lasegue's sign negative, straight leg raise negative bilaterally, thoraco-lumbar ROM limited, No thoracic spinal tenderness and No lumbar spinal tenderness Results Reviewed Results Reviewed: XR LUMBOSACRAL SPINE 04/20/25 CLINICAL INFORMATION: LBP x 2 weeks COMPARISON: None available. TECHNIQUE: AP and lateral views. FINDINGS: Multilevel marginal osteophyte formation and endplate sclerosis in the axial skeleton. Incomplete ankylosis in the lower thoracic spine. No acute cortical disruption. No gross malalignment. No lytic or blastic lesions. Vascular clips in the right upper quadrant abdomen. Spina bifida occulta S1.. IMPRESSION: Multilevel thoracolumbar spondylosis. Questionable ankylosing spondylitis, lower thoracic spine. Status post cholecystectomy. Assessment & Plan Assessment & Plan (1) Lumbosacral spondylosis: Code(s): M47.817 - Spondylosis without myelopathy or radiculopathy, lumbosacral region Category: Medical (2) Lumbar degenerative disc disease: Code(s): M51.369 - Other intervertebral disc degeneration, lumbar region without mention of lumbar back pain or lower extremity pain Category: Medical Plan The plan involves considering radiofrequency ablation for longer-term pain relief, as recent diagnostic lumbar medial branch blocks indicated potential benefit. The patient was informed about the option of repeating the injections with steroids, which could provide three months of relief but may affect blood glucose levels due to diabetes. The patient reports complete back pain relief since injections, and is interested to discuss with family on his decision between therapeutic injections or radiofrequency ablation. Given age-related memory changes with periods of forgetfulness and confusion, patient is not candidate for Sprint PNS trial. All questions and concerns have been answered and patient agreed with the treatment plan. Follow up as needed. Patient was informed and verbally consented to the use of an ambient scribe for clinic note documentation during this visit. Coding Level of Care Code Est Pt Level 3 (60406) Complex EM visit Add On G2211 Diagnoses Lumbosacral spondylosis M47.817 Lumbar degenerative disc disease M51.369
[2025-07-26 10:51] VITALS: BP 138/63; PULSE 61; O2SAT 97; BMI 23.3
--- OUTSIDE RECORDS SUMMARY | 2025-07-26 13:11 | XMS_ITS | Clinical Summary ---
Author Organization [facility] [address] [facility] Address [address] [place] [address] Phone Care Team Providers Care Senior Reservations Agent Name Role Phone Unavailable Primary Care Provider [...] propionate (FLONASE) 50 mcg/actuation nasal spray 1 [place] by Each Nare route daily. 0 Active [...] Diagnosed Date Hydrocele, bilateral 09/05/2019 Overview (10/07/2024): [facility] 09/01/19 ZULEYMA (obstructive sleep apnea) 09/07/2018 Overview (10/07/2024): [facility] Home Polysomnogram: Date 09/02/2018; AHI 43, Unclassified apneas 44; Obstructive apneas 285; Central apneas 12; Mixed apneas 1; hypopneas 26; oxygen saturation data not recorded. [facility] Polysomnogram treatment study. Date 10/12/2018. SE 55 [...] 02/02/2018 Diabetes mellitus type 2, un complicated ([facility] V24, [facility] V28) 02/02/2018 Elevated PSA 02/02/2018 Overview (10/07/2024): PSA 4 in 2018 per uro note 12/2019; %free PSA 23 favoring benign etiol. He recommended d/cing PSA screening. Hyperlipidemia 02/02/2018 Hypertension 02/02/2018 Immunizations Name Administration Dates Next Due Influenza trivalent, 0.5mL ( Fluad) 65yo and older 10/17/2022,08/21/2021,07/17/2020,09/16 Influenza, Unspecified 11/10/2017 Pfizer Covid-19 Bivalent, Or iginal + Ba.1 (Non-US Trademark [employer] Bivalent) 10/08/2022 [employer] SARS-CoV-2 COVID-19, mRNA, LNP-S, preservative free 01/04/2021,12/14/2020 [...] DX:Hypertension Diabetes mellitus type 2, un complicated ([facility] V24, [facility] V28) 02/02/2018 DX:Diabetes mellitus type 2 [...] Results * Diabetes Foot Exam (04/13/2024) Pathologist [facility] Diabetes: Annual Foot Exam abstracted Result [facility] Provider HEALTH MAINTENANCE Final Result * Urine Albumin Creatinine Ratio (03/09/2024) Pathologist [facility] Urine Albumin Creatinine Ratio abstracted Result [facility] HEALTH MAINTENANCE Final Result * Annual BMP Blood Test (03/09/2024) Pathologist [facility] Annual BMP Blood Test abstracted Result [facility] HEALTH MAINTENANCE Final Result * Hemoglobin A1c (03/09/2024) [facility] Hemoglobin A1C 5.8 <=6.5 % Blood Venous blood specimen / Unknown Result [facility] LAB BLOOD ORDERABLES Sandie l Result * (ABNORMAL) Lipid panel (03/09/2024) [facility] LDL/HDL Ratio 4 0 - 4 Triglycerides 174(A) 0 - 150 mg/dL Cholesterol 148 0 - 200 mg/dL HDL 39(A) >=40 mg/dL LDL Cholesterol 75 0 - 100 mg/dL Blood Venous blood specimen / Unknown Result [facility] LAB BLOOD ORDERABLES Sandie l Result from Last 3 Months or Most Recently Relevant to Health Maintenance Insurance [employer] [place]ICA[place]
== END 2025-07-26 11:00 | disposition home or self-care (01) ==
LOC: HO.PMC 10:44
PROVIDERS: PCP Family Medicine; Visit Provider Nurse Practitioner Family
DX: M47.817 Spondylosis without myelopathy or radiculopathy, lumbosacral region (principal); M51.369 Other intervertebral disc degeneration, lumbar region without mention of lumbar back pain or lower extremity pain
CPT/HCPCS: 99213; G2211

== ENCOUNTER → 2025-07-26 10:44 | Outpatient (BNVA) | payer OTHER, SELFPAY | PROVIDERS: PCP Family Medicine; Visit Provider Nurse Practitioner Family | DX: M47.817 Spondylosis without myelopathy or radiculopathy, lumbosacral region (principal); M51.369 Other intervertebral disc degeneration, lumbar region without mention of lumbar back pain or lower extremity pain; Z98.890 Other specified postprocedural states | CPT/HCPCS: 99212 ==